=== PATIENT | male | born 1965 | race American Indian/Alaskan Native ===

== ENCOUNTER 2019-12-06 14:13 | Observation (INO) | payer OTHER ==
[2019-12-06 15:53] LABS: Basophils # (Auto) 0.1 K/mm3 (0.0-0.1); Basophils % (Auto) 1.1 % (0.0-1.8); Eosinophils # (Auto) 0.1 K/mm3 (0.0-0.4); Eosinophils % (Auto) 2.1 % (0.0-4.3); Hematocrit 34.8 % (35.5-45.6); Hemoglobin 11.9 gm/dl (11.8-15.2); Lymphocytes # (Auto) 1.6 K/mm3 (1.2-5.4); Lymphocytes % (Auto) 30.3 % (13.4-35.0); Mean Corpuscular HGB Conc 34 % (32-34); Mean Corpuscular Volume 87 fl (84-94); Monocytes # (Auto) 0.3 K/mm3 (0.0-0.8); Monocytes % (Auto) 6.2 % (0.0-7.3); Platelet Count 223 K/mm3 (140-440); Red Blood Count 3.99 M/mm3 (3.65-5.03); Red Cell Distribution Width 16.5 % (13.2-15.2)
[2019-12-06 16:09] LABS: INR 0.78 (0.87-1.13)
[2019-12-06 16:15] LABS: Calcium 9.3 mg/dL (8.4-10.2)
[2019-12-06 16:41] LABS: Partial Thromboplastin Time TNR Sec. (24.2-36.6)
--- NOTE | 2019-12-06 16:49 | Consultation ---
History of Present Illness - Reason for Consult Consult date: 12/06/19 Malfunctioning AV fistula Requesting physician: TOSHA HORN - History of Present Illness HPI: 54-year-old gentleman with end-stage renal disease on hemodialysis via left arm AV fistula M, W, F presents after unable to undergo dialysis on Tuesday due to pulling clots. The patient has a left arm brachiocephalic AV fistula that was created by Dr. miller approximately 3 months ago. The patient recently started cannulation of his access approximately 2-1/2 weeks ago. Per the patient's , no issues with cannulation of the AV fistula initially until this past Tuesday. We have been consulted to evaluate the patient's access for possible intervention. PMH: Hypertension, diabetes mellitus PE: NAD, alert and oriented x3 Regular rate and rhythm Non-labored respirations Left arm AV fistula with palpable thrill Mild left upper arm edema Left hand warm and well-perfused, motor and sensory grossly intact Plan: 54-year-old gentleman with ESRD presents with malfunctioning left arm AV fistula We will plan to take to the [facility] tomorrow for left arm fistulogram with possible intervention N.p.o. after midnight Medications and Allergies Allergies Allergy/AdvReac Type Severity Reaction Status Date / Time No Known Allergies Allergy Unverified 12/06/19 14:14 Exam - Constitutional Vitals: Temp Pulse Resp BP Pulse Ox 98.7 F 97 H 20 150/86 99 12/06/19 14:14 12/06/19 14:14 12/06/19 14:14 12/06/19 14:14 12/06/19 14:14 Results - Labs CBC & Chem 7: 12/06/19 15:27 12/06/19 15:27 Labs: Abnormal lab results 12/06/19 12/06/19 12/06/19 Range/Units 15:27 15:27 15:27 Hct 34.8 L (35.5-45.6) % RDW 16.5 H (13.2-15.2) % PT 10.7 L (12.2-14.9) Sec. INR 0.78 L (0.87-1.13) Chloride 96.3 L (98-107) mmol/L BUN 64 H (9-20) mg/dL Creatinine 12.1 H (0.8-1.5) mg/dL Glucose 111 H (75-100) mg/dL
--- NOTE | 2019-12-06 17:19 | Emergency Department Report ---
ED General Adult HPI - General Chief complaint: Extremity Injury, Upper Stated complaint: FLUSH FISTULA PUI?: No Time Seen by Provider: 12/06/19 14:37 Source: patient, family Mode of arrival: Ambulatory Limitations: Other - History of Present Illness Initial comments: Mr. Urbina is a 54-year-old male with history of end-stage renal disease on hemodialysis Tuesday with left arm AV fistula. He was unable to undergo dialysis on Tuesday. Hemodialysis nurse was unable to obtain vascular access using the AV fistula. Gage Designer referred patient to the emergency department. Vascular surgeon has evaluated patient here in emergency department for declotting procedure. Surgical intervention. Mr. Funes does not have any other physical concerns. Additional history includes hypertension diabetes mellitus. -: days(s) (1) Location: left, upper extremity Associated Symptoms: denies other symptoms Treatments Prior to Arrival: none - Related Data Allergies Allergy/AdvReac Type Severity Reaction Status Date / Time No Known Allergies Allergy Unverified 12/06/19 14:14 ED Review of Systems ROS: Stated complaint: FLUSH FISTULA Other details as noted in HPI Comment: All other systems reviewed and negative Constitutional: denies: fever, malaise Respiratory: denies: cough Cardiovascular: denies: chest pain, palpitations Gastrointestinal: denies: abdominal pain, nausea, vomiting Skin: denies: rash, lesions ED Past Medical Hx - Past Medical History Previous Medical History?: Yes Hx Hypertension: Yes Hx Renal Disease: Yes (dialysis M,W,F) - Surgical History Past Surgical History?: Yes Additional Surgical History: fistula placement - Social History Smoking Status: Never Smoker Substance Use Type: None ED Physical Exam - General Limitations: Other General appearance: alert, in no apparent distress - Head Head exam: Present: atraumatic, normocephalic - Eye Eye exam: Present: normal appearance - ENT ENT exam: Present: mucous membranes moist - Neck Neck exam: Present: normal inspection, full ROM - Respiratory Respiratory exam: Present: normal lung sounds bilaterally. Absent: respiratory distress, wheezes, rales, rhonchi - Cardiovascular Cardiovascular Exam: Present: regular rate, normal rhythm, normal heart sounds. Absent: systolic murmur, diastolic murmur, rubs, gallop - GI/Abdominal GI/Abdominal exam: Present: soft, normal bowel sounds. Absent: distended, tenderness, guarding, rebound - Rectal Rectal exam: Present: deferred - Extremities Exam Extremities exam: Present: other (Left upper extremity: No erythema no drainage no purulence positive thrill) - Back Exam Back exam: Present: normal inspection - Neurological Exam Neurological exam: Present: alert, oriented X3 - Psychiatric Psychiatric exam: Present: normal affect, normal mood - Skin Skin exam: Present: warm, dry, intact, normal color. Absent: rash ED Course Vital Signs 12/06/19 14:14 Temperature 98.7 F Pulse Rate 97 H Respiratory 20 Rate Blood Pressure 150/86 O2 Sat by Pulse 99 Oximetry ED Medical Decision Making - Lab Data Result diagrams: 12/06/19 15:27 12/06/19 15:27 Laboratory Results - last 24 hr 12/06/19 12/06/19 12/06/19 15:27 15:27 15:27 WBC 5.4 RBC 3.99 Hgb 11.9 Hct 34.8 L MCV 87 MCH 30 MCHC 34 RDW 16.5 H Plt Count 223 Lymph % (Auto) 30.3 [place] % (Auto) 6.2 Eos % (Auto) 2.1 Baso % (Auto) 1.1 Lymph # 1.6 [place] # 0.3 Eos # 0.1 Baso # 0.1 Seg Neutrophils % 60.3 Seg Neutrophils # 3.2 PT 10.7 L INR 0.78 L APTT TNR Sodium 141 Potassium 4.3 Chloride 96.3 L Carbon Dioxide 24 Anion Gap 25 BUN 64 H Creatinine 12.1 H Estimated GFR 4 BUN/Creatinine Ratio 5 Glucose 111 H Calcium 9.3 - Medical Decision Making Mr. Funes presents with malfunctioning AV fistula. Vascular surgery team evaluated Mr. Funes in the ED. Plan admit to hospitalist service. Patient will be taken to mill labor supervisor tomorrow for fistulogram and possible surgical intervention. I consulted adjuster and inspector Dr. Aragon. No current need for emergeny hemodiaysis. Potassium within normal limits. No respiratory distress. Critical care attestation.: If time is entered above; I have spent that time in minutes in the direct care of this critically ill patient, excluding procedure time. ED Disposition Clinical Impression: Complication of AV dialysis fistula Disposition: OP ADMIT IP TO THIS HOSP Is pt being admited?: Yes Does the pt Need Aspirin: No Condition: Stable
--- NOTE | 2019-12-06 23:51 | Event Note ---
Date: 12/06/19 See history and physical in the reports Clotted AV fistula on the left arm
[2019-12-07] MEDS ORDERED: DOCUSATE SODIUM 100 MG CAP PO PRN (00:39)
[2019-12-07] MEDS ORDERED: OXYCODONE HCL PO PRN (00:39)
[2019-12-07] MEDS ORDERED: ACETAMINOPHEN PO PRN (00:39)
[2019-12-07] MEDS ORDERED: ONDANSETRON 4 MG/2 ML INJ IV PRN (00:40)
[2019-12-07] MEDS ORDERED: ACETAMINOPHEN 325 MG TAB PO PRN (00:40)
[2019-12-07] MEDS ORDERED: HYDROmorphone 1 MG/1 ML INJ IV PRN (00:40)
[2019-12-07] MEDS ORDERED: oxyCODONE /ACETAMINOPHEN 5-325MG TAB PO PRN (00:40)
--- NOTE | 2019-12-07 00:53 | History and Physical Report ---
CHIEF COMPLAINT: Left upper extremity AV fistula malfunction. HISTORY OF PRESENT ILLNESS: A 54-year-old male with history of end-stage renal disease, hypertension, insulin-dependent diabetes, was unable to undergo hemodialysis on Tuesday because of malfunctioning AV fistula. The patient was referred to the Emergency Department. The patient was evaluated in the ER by the Vascular Surgery for declotting procedure, but could not be done. The patient to be taken for surgical intervention tomorrow morning. The patient has pain in the left upper extremity and swelling of the left upper extremity from below shoulder joint to up to the elbow. No fever or chills. PAST MEDICAL HISTORY: Significant for hypertension, end-stage renal disease and insulin-dependent diabetes. PAST SURGICAL HISTORY: Fistula placement. SOCIAL HISTORY: Does not smoke. No alcohol, no recreational drugs. FAMILY HISTORY: Hypertension. REVIEW OF SYSTEMS: Significant for left upper extremity pain, which is about 6 on a scale of 1-10. No fever or chills. Otherwise, review of systems negative. PHYSICAL EXAMINATION: GENERAL: Middle-aged male, cooperative during examination. VITAL SIGNS: Blood pressure is 150/86, temperature is 98.7, pulse is 97, respirations are 20, sats are 99%. HEENT: Unremarkable. Pupils equal and reactive. NECK: Supple, no lymphadenopathy, no thyromegaly. LUNGS: Clear to auscultation and percussion. Good air entry. CARDIOVASCULAR: S1, S2 heard. No gallop, no murmur, no rub. Apical impulse in left fifth intercostal space and midclavicular line. ABDOMEN: Soft and benign. No hepatosplenomegaly. No guarding, no rigidity. Hernial orifices are normal. EXTREMITIES: Left upper extremity swollen from below shoulder to left elbow. CENTRAL NERVOUS SYSTEM: Alert and oriented x 4, nonfocal exam. LABORATORY DATA: White count is 5400, H and H is 11.9 and 34.8, platelet count is 222,000. Sodium is 141, potassium is 4.3, bicarbonate is 24, chloride is 96.3, BUN and creatinine 64 and 12.1. Glucose is 111. ASSESSMENT AND PLAN: 1. AV fistula malfunction. The patient to be taken for declotting procedure tomorrow by surgical intervention. Vascular Surgery consulted. 2. End-stage renal disease, needing hemodialysis. Nephrology consulted. 3. Insulin-dependent diabetes. Continue Lantus and coverage. Check hemoglobin A1c. 4. Hypertension. Continue antihypertensives and adjust medications as necessary. 5. Gastroesophageal reflux disease. Continue pantoprazole 40 mg once a day. 6. Hyperlipidemia. Continue atorvastatin 40 mg once a day. 7. Benign prostatic hypertrophy. Continue tamsulosin 0.4 mg once a day. 8. Deep venous thrombosis prophylaxis, heparin 5000 q. 12 hours. JOB# [id number] VSM/NTS MTDD
[2019-12-07] MEDS ORDERED: cloNIDine TTS 0.1 MG/24 HR PATCH TD SCH (01:00)
[2019-12-07] MEDS ORDERED: SCOPOLAMINE TRANSDERMAL PATCH 72 HR TD SCH (01:00)
[2019-12-07 01:55] LABS: Basophils % (Auto) 0.4 % (0.0-1.8); Eosinophils # (Auto) 0.1 K/mm3 (0.0-0.4); Eosinophils % (Auto) 3.1 % (0.0-4.3); Hematocrit 34.1 % (35.5-45.6); Hemoglobin 11.3 gm/dl (11.8-15.2); Lymphocytes # (Auto) 1.8 K/mm3 (1.2-5.4); Mean Corpuscular HGB Conc 33 % (32-34); Mean Corpuscular Volume 89 fl (84-94); Monocytes # (Auto) 0.3 K/mm3 (0.0-0.8); Monocytes % (Auto) 7.6 % (0.0-7.3); Platelet Count 208 K/mm3 (140-440); Red Blood Count 3.85 M/mm3 (3.65-5.03); Red Cell Distribution Width 16.5 % (13.2-15.2)
[2019-12-07] MEDS: ONDANSETRON 4 MG ODT TAB PO SCH ×3 (03:09→15:49)
[2019-12-07] MEDS: HEPARIN 5,000 UNIT/1 ML VIAL SUB-Q SCH ×3 (03:11→21:45)
[2019-12-07] MEDS: INSULIN LISPRO 100 UNIT/ML SUB-Q SCH ×4 (07:13→21:47)
[2019-12-07] MEDS ORDERED: HEPARIN/NS 5000 UNIT/500ML 1,000 ML IR ONE (08:00)
[2019-12-07] MEDS ORDERED: SODIUM CHLORIDE 0.9% 500 ML 500 ML ONE (08:01)
[2019-12-07] MEDS: MIDAZOLAM 2 MG/2 ML INJ ONE ×2 (08:27→08:51)
[2019-12-07] MEDS: fentaNYL 100 MCG/2 ML INJ ONE ×2 (08:27→08:51)
[2019-12-07] MEDS ORDERED: SODIUM CHLORIDE 0.9% 100 ML IV PRN ×2 (08:30→08:43)
[2019-12-07] MEDS: LIDOCAINE 1%/EPINEPHRINE 1:100,000 VIAL (20 ML) INFILTRATI ONE ×2 (08:30→08:51)
[2019-12-07] MEDS: HEPARIN 10,000 UNITS/10 ML VIAL ONE ×3 (08:59→09:04)
--- NOTE | 2019-12-07 09:14 | Post Operative Note ---
Date of procedure: 12/07/19 Pre-op diagnosis: ESRD Post-op diagnosis: same Findings: widely patent left brachiocephalic av fistula with multiple branches noted, no central venous stenosis, no stenosis noted at the arterial anastomosis Procedure: 1. Ultrasound access of Left Arm AV Fistula 2. Left Upper Extremity Diagnostic Fistulogram 3. Ultrasound access of Right Internal Jugular Vein 4. Right IJ Permcath Insertion 5. Monitored Conscious Sedation for 30 minutes Anesthesia: MAC, local Estimated blood loss: minimal Pathology: none Condition: stable Disposition: floor
--- NOTE | 2019-12-07 09:38 | Operative Report ---
STAFF SURGEON: Ricardo Morris MD PREOPERATIVE DIAGNOSIS: End-stage renal disease with malfunctioning arteriovenous fistula. POSTOPERATIVE DIAGNOSIS: End-stage renal disease with malfunctioning arteriovenous fistula. PROCEDURE PERFORMED: 1. Ultrasound access of left arm AV fistula. 2. Left upper extremity diagnostic fistulogram. 3. Ultrasound access of right internal jugular vein. 4. Right IJ PermCath insertion. 5. Monitor conscious sedation for 30 minutes. COMPLICATIONS: None. ESTIMATED BLOOD LOSS: Less than 10 mL. ANESTHESIA: Local MAC. ANGIOGRAPHIC FINDINGS: The patient had a widely patent left brachiocephalic AV fistula with multiple branches noted in the body of the fistula. No central venous stenosis and no stenosis noted at the arterial anastomosis. INDICATIONS FOR PROCEDURE: This is a 54-year-old gentleman who recently had a left brachiocephalic AV fistula created that just recently started to be cannulated for dialysis, who on his most recent dialysis attempt was infiltrated and were pulling clots when attempting to be placed on dialysis. Therefore, the patient was sent for vascular consultation and possible evaluation. The patient's family and himself were explained all the risks, benefits and alternatives of procedure, expressed understanding and wished to proceed. DESCRIPTION OF PROCEDURE: After appropriate consent was obtained, the patient was brought back to the builder's labourer, placed on table in supine position with the left arm extended. Appropriate time-out performed indicating correct patient, procedure, and site of procedure. We then began the intervention by obtaining percutaneous access of the left arm AV fistula using micropuncture technique under ultrasound guidance. Once we obtained access, needle was exchanged for a micropuncture sheath using Seldinger technique and a series of diagnostic imaging of the left upper extremity, which demonstrated the findings noted above. Further imaging of the arterial anastomosis was performed with compression of the AV fistula. Once that was complete, we then proceeded to remove the micropuncture sheath and digital compression was held at the access site for hemostasis. The right neck and chest were then prepped and draped in the usual sterile fashion with ChloraPrep. We then proceeded to obtain percutaneous access of the right internal jugular vein using micropuncture technique under ultrasound guidance. We then proceeded to exchange the needle for a micropuncture sheath. A stiff J-wire was then placed into the IVC. The sheath was removed. A stab incision was made on the anterior chest wall just below the clavicle. We then proceeded to create a subcutaneous tunnel bringing through a 23 cm straight PermCath. The access site was then thoroughly dilated appropriately. Then, a sheath and dilator were placed over the wire into the SVC. Dilator and wire were removed. The catheter was then placed through the peel-away sheath with the tip of the catheter at the SVC right atrial junction. The peel-away sheath was removed. Both lumens celeste blood appropriately, were flushed with heparinized saline. Appropriate amount of heparin was placed in each port. We then proceeded to close the access site with a deep subcutaneous layer with a 3-0 Vicryl and the skin was approximated with 3-0 nylon and the catheter exit site was sutured in place with 3-0 nylon. Appropriate dressing was placed. The patient tolerated the procedure well, emerged from the conscious sedation and was sent to recovery in stable condition. JOB# [id number] CRYSTAL/HAO
[2019-12-07] MEDS ORDERED: FAMOTIDINE 10 MG TAB PO SCH (10:00)
--- NOTE | 2019-12-07 10:13 | Progress Note ---
Assessment and Plan Assessment and plan: --AV fistula malfunction; Vascular evaluated the patient Vascular procedure/permacath placement --End-stage renal disease on hemodialysis; Nephrology following, HD per schedule --Type 2 diabetes mellitus; Accu-Chek sliding scale coverage ADA diet and insulin --Hypertension; moderate control Continue current antihypertensives and PRN medications --BPH; stable on tamsulosin --DVT prophylaxis; Heparin renal dose Closely monitor the patient and adjust management as needed Hospitalist Physical - Constitutional Vitals: Temp Pulse Resp BP Pulse Ox 98.0 F 76 18 144/83 100 12/06/19 23:50 12/06/19 23:50 12/06/19 23:50 12/06/19 23:50 12/06/19 23:50 Results - Labs CBC & Chem 7: 12/07/19 01:15 12/07/19 01:15 Labs: Laboratory Last Values WBC 4.3 K/mm3 (4.5-11.0) L 12/07/19 01:15 RBC 3.85 M/mm3 (3.65-5.03) 12/07/19 01:15 Hgb 11.3 gm/dl (11.8-15.2) L 12/07/19 01:15 Hct 34.1 % (35.5-45.6) L 12/07/19 01:15 MCV 89 fl (84-94) 12/07/19 01:15 MCH 29 pg (28-32) 12/07/19 01:15 MCHC 33 % (32-34) 12/07/19 01:15 RDW 16.5 % (13.2-15.2) H 12/07/19 01:15 Plt Count 208 K/mm3 (140-440) 12/07/19 01:15 Lymph % (Auto) 42.0 % (13.4-35.0) H 12/07/19 01:15 [place] % (Auto) 7.6 % (0.0-7.3) H 12/07/19 01:15 Eos % (Auto) 3.1 % (0.0-4.3) 12/07/19 01:15 Baso % (Auto) 0.4 % (0.0-1.8) 12/07/19 01:15 Lymph # 1.8 K/mm3 (1.2-5.4) 12/07/19 01:15 [place] # 0.3 K/mm3 (0.0-0.8) 12/07/19 01:15 Eos # 0.1 K/mm3 (0.0-0.4) 12/07/19 01:15 Baso # 0.0 K/mm3 (0.0-0.1) 12/07/19 01:15 Seg Neutrophils % 46.9 % (40.0-70.0) 12/07/19 01:15 Seg Neutrophils # 2.0 K/mm3 (1.8-7.7) 12/07/19 01:15 PT 10.7 Sec. (12.2-14.9) L 12/06/19 15:27 INR 0.78 (0.87-1.13) L 12/06/19 15:27 APTT TNR 12/06/19 16:50 Sodium 139 mmol/L (137-145) 12/07/19 01:15 Potassium 4.2 mmol/L (3.6-5.0) 12/07/19 01:15 Chloride 93.6 mmol/L (98-107) L 12/07/19 01:15 Carbon Dioxide 29 mmol/L (22-30) 12/07/19 01:15 Anion Gap 21 mmol/L 12/07/19 01:15 BUN 68 mg/dL (9-20) H 12/07/19 01:15 Creatinine 12.4 mg/dL (0.8-1.5) H 12/07/19 01:15 Estimated GFR 5 ml/min 12/07/19 01:15 BUN/Creatinine Ratio 5 % 12/07/19 01:15 Glucose 128 mg/dL (75-100) H 12/07/19 01:15 Hemoglobin A1c 5.4 % (4-6) 12/07/19 01:15 Calcium 9.0 mg/dL (8.4-10.2) 12/07/19 01:15 [place]/IV: Voiding Method Toilet IV Catheter Type [Right INT / Saline Lock Antecubital] Active Medications - Current Medications Current Medications: Generic Name Dose Route Start Last Admin Trade Name Freq PRN Reason Stop Dose Admin Acetaminophen 650 mg 12/07/19 00:40 Tylenol PO Q4H PRN Pain MILD(1-3)/Fever >100.5/PRUITT Amlodipine Besylate 5 mg 12/07/19 10:00 Amlodipine PO DAILY [facility] Atorvastatin Calcium 40 mg 12/07/19 22:00 Lipitor PO QHS [facility] Clonidine HCl 0.1 mg 12/07/19 01:00 12/07/19 03:10 Catapres-Tts Patch TD 0.1 mg Fr ERROL Administration Docusate Sodium 100 mg 12/07/19 00:39 Colace PO BID PRN Constipation Heparin Sodium (Porcine) 5,000 unit 12/07/19 01:00 12/07/19 03:11 Heparin SUB-Q 5,000 unit Q12HR [facility] Administration Hydromorphone HCl 0.5 mg 12/07/19 00:40 Dilaudid IV Q3H PRN Pain , Severe (7-10) Sodium Chloride 100 mls @ 999 mls/hr 12/07/19 08:43 Nacl 0.9% IV EVELYN PRN Hypotension Insulin Glargine 10 units 12/07/19 22:00 Lantus SUB-Q QHS [facility] Insulin Human Lispro 0 unit 12/07/19 07:30 12/07/19 07:13 Humalog SUB-Q Not Given ACHS [facility] Protocol Ondansetron HCl 4 mg 12/07/19 01:00 12/07/19 05:15 Zofran Odt PO 4 mg Q8HR ERROL Administration Ondansetron HCl 4 mg 12/07/19 00:40 Zofran IV Q8H PRN Nausea And Vomiting Oxycodone/Acetaminophen 1 tab 12/07/19 00:40 Percocet 5/325 PO Q6H PRN Pain, Moderate (4-6) Pantoprazole Sodium 40 mg 12/07/19 10:00 Protonix PO QDAY [facility] Scopolamine 1 each 12/07/19 01:00 12/07/19 03:10 Transderm-Scop TD 1 each Q3D ERROL Administration Sodium Chloride 10 ml 12/07/19 10:00 Sodium Chloride Flush Syringe 10 Ml IV BID ERROL Sodium Chloride 10 ml 12/07/19 00:40 Sodium Chloride Flush Syringe 10 Ml IV PRN PRN LINE FLUSH Sorbitol 30 ml 12/07/19 10:00 Sorbitol 70% PO QDAY [facility] Tamsulosin HCl 0.4 mg 12/07/19 10:00 Flomax PO QDAY [facility]
[2019-12-07 11:37] LABS: Hepatitis B Surface Antigen Non-Reactive (Negative); Hepatitis C Virus Antibody Non-Reactive (NonReactive)
--- NOTE | 2019-12-07 11:46 | Consultation ---
History of Present Illness - Reason for Consult Consult date: 12/07/19 end stage renal disease Requesting physician: CHENG TAN - History of Present Illness This is a 54 yo M with past medical history of hypertension, T2 DM, ESRD on HD on MWF schedule at [facility] [place] Maria Isabel Flores, who presents to [facility] ER from HD clinic after patient was not able to undergo HD on Tue due to pulling clots. The patient has a left arm brachiocephalic AV fistula that was created by Dr. miller about 3 months ago. The patient recently started cannulation of his access approximately 3 weeks ago. Per the patient's , no issues with cannulation of the AV fistula initially until this past Tuesday. patient was admitted for vascular surgery evaluation, and renal consult requested for management of ESRD/HD. Past History Past Medical History: diabetes, hypertension, renal failure Past Surgical History: Other (AVF placement, permcath placement ) Social history: denies: smoking, alcohol abuse, prescription drug abuse, IV drug use Family history: hypertension Medications and Allergies Allergies Allergy/AdvReac Type Severity Reaction Status Date / Time No Known Allergies Allergy Verified 12/07/19 00:46 Home Medications Medication Instructions Recorded Confirmed Last Taken Type AtorvaSTATin [Lipitor] 40 mg PO QHS 12/06/19 12/06/19 Unknown History Docusate Sodium [Colace] 100 mg PO BID PRN 12/06/19 12/06/19 Unknown History Insulin Glargine [Lantus VIAL] 0 units SUB-Q QHS 12/06/19 12/06/19 Unknown History Ondansetron [Zofran Odt] 4 mg PO Q8HR 12/06/19 12/06/19 Unknown History Oxycodone HCl/Acetaminophen 1 tab PO Q6HR PRN 12/06/19 12/06/19 Unknown History [Oxycodon-Acetaminophen 2.5-325] Pantoprazole [Protonix] 40 mg PO QDAY 12/06/19 12/06/19 Unknown History Scopolamine [Transderm-Scop] 1 each TD Q3D 12/06/19 12/06/19 Unknown History Sorbitol 70% 30 ml PO QDAY 12/06/19 12/06/19 Unknown History Tamsulosin [Flomax] 0.4 mg PO QDAY 12/06/19 12/06/19 Unknown History amLODIPine [Norvasc] 5 mg PO DAILY 12/06/19 12/06/19 Unknown History cloNIDine-TTS PATCH [Catapres-Tts 1 patch TD Q7D 12/06/19 12/06/19 Unknown History 0.1MG Patch] Active Meds: Active Medications Acetaminophen (Tylenol) 650 mg PO Q4H PRN PRN Reason: Pain MILD(1-3)/Fever >100.5/PRUITT Amlodipine Besylate (Amlodipine) 5 mg PO DAILY [facility] Atorvastatin Calcium (Lipitor) 40 mg PO QHS [facility] Clonidine HCl (Catapres-Tts Patch) 0.1 mg TD Fr [facility] Last Admin: 12/07/19 03:10 Dose: 0.1 mg Documented by: Docusate Sodium (Colace) 100 mg PO BID PRN PRN Reason: Constipation Heparin Sodium (Porcine) (Heparin) 5,000 unit SUB-Q Q12HR [facility] Last Admin: 12/07/19 03:11 Dose: 5,000 unit Documented by: Hydromorphone HCl (Dilaudid) 0.5 mg IV Q3H PRN PRN Reason: Pain , Severe (7-10) Sodium Chloride (Nacl 0.9%) 100 mls @ 999 mls/hr IV EVELYN PRN PRN Reason: Hypotension Insulin Glargine (Lantus) 10 units SUB-Q QHS [facility] Insulin Human Lispro (Humalog) 0 unit SUB-Q [facility]; Protocol Last Admin: 12/07/19 07:13 Dose: Not Given Documented by: Ondansetron HCl (Zofran Odt) 4 mg PO Q8HR [facility] Last Admin: 12/07/19 05:15 Dose: 4 mg Documented by: Ondansetron HCl (Zofran) 4 mg IV Q8H PRN PRN Reason: Nausea And Vomiting Oxycodone/Acetaminophen (Percocet 5/325) 1 tab PO Q6H PRN PRN Reason: Pain, Moderate (4-6) Pantoprazole Sodium (Protonix) 40 mg PO QDAY [facility] Scopolamine (Transderm-Scop) 1 each TD Q3D [facility] Last Admin: 12/07/19 03:10 Dose: 1 each Documented by: Sodium Chloride (Sodium Chloride Flush Syringe 10 Ml) 10 ml IV BID [facility] Sodium Chloride (Sodium Chloride Flush Syringe 10 Ml) 10 ml IV PRN PRN PRN Reason: LINE FLUSH Sorbitol (Sorbitol 70%) 30 ml PO QDAY ERROL Tamsulosin HCl (Flomax) 0.4 mg PO QDAY ERROL Review of Systems All systems: negative Constitutional: weakness Exam - Vital Signs Vital signs: Vital Signs Temp Pulse Resp BP Pulse Ox 98.7 F 97 H 20 150/86 99 12/06/19 14:14 12/06/19 14:14 12/06/19 14:14 12/06/19 14:14 12/06/19 14:14 - General Appearance General appearance: well-developed, well-nourished, appears stated age EENT: ATNC, PERRL, mucous membranes moist Neck: Present: neck supple Respiratory: Clear to Ascultation Heart: regular, S1S2 Gastrointestinal: Present: normoactive bowel sounds Integumentary: no rash, other (no edema, LUE AVF with + thrill/bruit, Rt permcath ) Neurologic: no focal deficit, alert and oriented x3, strength 5/5, CN 3-12 intact Psychiatric: mood/affect appropriate, cooperative Results - Lab Results 12/07/19 01:15 12/07/19 01:15 Most recent lab results Calcium 9.0 mg/dL (8.4-10.2) 12/07/19 01:15 Assessment and Plan - Patient Problems (1) Complication of AV dialysis fistula Current Visit: Yes Status: Acute Plan to address problem: vascular surgery consult appreciated, s/p fistulogram this AM. Cont HD via permcath for now until AVF use is cleared by vascular surgery (2) Type 2 diabetes mellitus with diabetic chronic kidney disease Current Visit: Yes Status: Acute Plan to address problem: diabetes management as per primary attending (3) Hypertensive chronic kidney disease with stage 1 through stage 4 chronic kidney disease, or unspecified chronic kidney disease Current Visit: Yes Status: Acute Plan to address problem: resume home BP meds (4) End stage renal disease Current Visit: Yes Status: Acute Plan to address problem: arranged maintenance HD on MWF schedule. use permcath for now, until AVF use is cleared by vascular surgery
[2019-12-07] MEDS ORDERED: ONDANSETRON 4 MG/2 ML INJ ONE (11:58)
[2019-12-07] MEDS: PANTOPRAZOLE 40 MG TAB PO SCH (14:14)
[2019-12-07] MEDS: SORBITOL 70% ORAL SOLN 30 ML PO SCH (14:15)
[2019-12-07] MEDS: TAMSULOSIN 0.4 MG CAP PO SCH (14:15)
[2019-12-07] MEDS: amLODIPine 5 MG TAB PO SCH (14:15)
[2019-12-07] MEDS ORDERED: INSULIN GLARGINE 100 UNITS/ML SUB-Q SCH (22:00)
[2019-12-08] MEDS: ONDANSETRON 4 MG ODT TAB PO SCH ×2 (03:34→06:08)
[2019-12-08] MEDS: INSULIN LISPRO 100 UNIT/ML SUB-Q SCH ×2 (08:24→12:57)
[2019-12-08] MEDS: PANTOPRAZOLE 40 MG TAB PO SCH (09:26)
[2019-12-08] MEDS: amLODIPine 5 MG TAB PO SCH (09:26)
[2019-12-08] MEDS: TAMSULOSIN 0.4 MG CAP PO SCH (09:26)
[2019-12-08] MEDS: HEPARIN 5,000 UNIT/1 ML VIAL SUB-Q SCH (09:26)
[2019-12-08] MEDS: SORBITOL 70% ORAL SOLN 30 ML PO SCH (09:27)
--- NOTE | 2019-12-08 10:21 | Progress Note ---
Assessment and Plan Patient can be discharged home from a vascular standpoint. He will need to follow-up in our office for cephalic vein elevation. Subjective Date of service: 12/08/19 Principal diagnosis: End-stage renal disease on hemodialysis with malfunctioning access Interval history: Patient is status post placement of a right IJ tunneled hemodialysis catheter. His left arm fistula has a palpable thrill although is infiltrated significantly. Patient complains of minimal left hand numbness without loss of motor. Objective - Constitutional Vitals: Vital Signs - 12hr 12/08/19 12/08/19 12/08/19 00:50 02:00 03:59 Temperature 98.9 F 98.0 F Pulse Rate 73 85 Respiratory 18 16 18 Rate Blood Pressure 137/83 135/84 O2 Sat by Pulse 96 98 Oximetry 12/08/19 12/08/19 06:59 08:54 Temperature 98.1 F Pulse Rate 89 79 Respiratory 20 Rate Blood Pressure 122/90 O2 Sat by Pulse 99 Oximetry General appearance: Present: no acute distress - EENT Eyes: EOM intact ENT: hearing intact - Neck Neck: supple, normal ROM - Respiratory Respiratory effort: normal Extremities: abnormal - Gastrointestinal General gastrointestinal: Present: deferred Rectal Exam: deferred - Genitourinary Male genitourinary: deferred - Psychiatric Psychiatric: appropriate mood/affect, cooperative - Labs CBC & Chem 7: 12/07/19 01:15 12/07/19 01:15 Labs: Abnormal lab results 12/07/19 Range/Units 21:27 POC Glucose 115 H (70-105) Medications & Allergies - Medications Allergies/Adverse Reactions: Allergies No Known Allergies Allergy (Verified 12/07/19 00:46) Home Medications: Home Medications Medication Instructions Recorded Confirmed Last Taken Type AtorvaSTATin [Lipitor] 40 mg PO QHS 12/06/19 12/06/19 Unknown History Docusate Sodium [Colace] 100 mg PO BID PRN 12/06/19 12/06/19 Unknown History Insulin Glargine [Lantus VIAL] 0 units SUB-Q QHS 12/06/19 12/06/19 Unknown History Ondansetron [Zofran Odt] 4 mg PO Q8HR 12/06/19 12/06/19 Unknown History Oxycodone HCl/Acetaminophen 1 tab PO Q6HR PRN 12/06/19 12/06/19 Unknown History [Oxycodon-Acetaminophen 2.5-325] Pantoprazole [Protonix] 40 mg PO QDAY 12/06/19 12/06/19 Unknown History Scopolamine [Transderm-Scop] 1 each TD Q3D 12/06/19 12/06/19 Unknown History Sorbitol 70% 30 ml PO QDAY 12/06/19 12/06/19 Unknown History Tamsulosin [Flomax] 0.4 mg PO QDAY 12/06/19 12/06/19 Unknown History amLODIPine [Norvasc] 5 mg PO DAILY 12/06/19 12/06/19 Unknown History cloNIDine-TTS PATCH [Catapres-Tts 1 patch TD Q7D 12/06/19 12/06/19 Unknown History 0.1MG Patch] Active Medications: Generic Name Dose Route Start Last Admin Trade Name Freq PRN Reason Stop Dose Admin Acetaminophen 650 mg 12/07/19 00:40 Tylenol PO Q4H PRN Pain MILD(1-3)/Fever >100.5/PRUITT Amlodipine Besylate 5 mg 12/07/19 10:00 12/08/19 09:26 Amlodipine PO 5 mg DAILY ERROL Administration Atorvastatin Calcium 40 mg 12/07/19 22:00 12/07/19 21:45 Lipitor PO 40 mg QHS ERROL Administration Clonidine HCl 0.1 mg 12/07/19 01:00 12/07/19 03:10 Catapres-Tts Patch TD 0.1 mg Fr ERROL Administration Docusate Sodium 100 mg 12/07/19 00:39 Colace PO BID PRN Constipation Heparin Sodium (Porcine) 5,000 unit 12/07/19 01:00 12/08/19 09:26 Heparin SUB-Q Not Given Q12HR ERROL Hydromorphone HCl 0.5 mg 12/07/19 00:40 Dilaudid IV Q3H PRN Pain , Severe (7-10) Sodium Chloride 100 mls @ 999 mls/hr 12/07/19 08:43 Nacl 0.9% IV EVELYN PRN Hypotension Insulin Glargine 10 units 12/07/19 22:00 12/07/19 21:46 Lantus SUB-Q Not Given QHS [facility] Insulin Human Lispro 0 unit 12/07/19 07:30 12/08/19 08:24 Humalog SUB-Q Not Given ACHS ERROL Protocol Ondansetron HCl 4 mg 12/07/19 01:00 12/08/19 06:08 Zofran Odt PO 4 mg Q8HR ERROL Administration Ondansetron HCl 4 mg 12/07/19 00:40 Zofran IV Q8H PRN Nausea And Vomiting Oxycodone/Acetaminophen 1 tab 12/07/19 00:40 Percocet 5/325 PO Q6H PRN Pain, Moderate (4-6) Pantoprazole Sodium 40 mg 12/07/19 10:00 12/08/19 09:26 Protonix PO 40 mg QDAY ERROL Administration Scopolamine 1 each 12/07/19 01:00 12/07/19 03:10 Transderm-Scop TD 1 each Q3D ERROL Administration Sodium Chloride 10 ml 12/07/19 10:00 12/07/19 21:45 Sodium Chloride Flush Syringe 10 Ml IV 10 ml BID ERROL Administration Sodium Chloride 10 ml 12/07/19 00:40 Sodium Chloride Flush Syringe 10 Ml IV PRN PRN LINE FLUSH Sorbitol 30 ml 12/07/19 10:00 12/08/19 09:27 Sorbitol 70% PO 30 ml QDAY ERROL Administration Tamsulosin HCl 0.4 mg 12/07/19 10:00 12/08/19 09:26 Flomax PO 0.4 mg QDAY ERROL Administration
--- NOTE | 2019-12-08 14:03 | Discharge Summary ---
Providers - Providers Date of Admission: 12/06/19 17:20 Date of discharge: 12/08/19 Attending physician: RAVEN OCONNOR 12/06/19 17:19 Consult to Physician [CONS] Stat Comment: SHE BENJI Muñoz/ DR LINN @1553 Consulting Provider: JOSE LINN Physician Instructions: Reason For Exam: malfunctioning AV fistula Consult to Physician [CONS] Stat Comment: BRISA BENJI Muñoz/DR MORALES @1519 Consulting Provider: KAROL MORALES Physician Instructions: Reason For Exam: ESRD on HD [facility] Condition: Stable Disposition: DC-01 TO HOME OR SELFCARE Time spent for discharge: 32 min Core Measure Documentation - Palliative Care Palliative Care/ Comfort Measures: Not Applicable - Core Measures Any of the following diagnoses?: none Exam - Constitutional Vitals: Temp Pulse Resp BP Pulse Ox 98 F 78 18 142/79 98 12/08/19 11:49 12/08/19 11:49 12/08/19 11:49 12/08/19 11:49 12/08/19 12:02 General appearance: Present: no acute distress, well-nourished - EENT Eyes: Present: PERRL, EOM intact - Neck Neck: Present: supple, normal ROM - Respiratory Respiratory effort: normal Respiratory: bilateral: diminished, negative: rales, rhonchi, wheezing - Cardiovascular Rhythm: regular Heart Sounds: Present: S1 & S2 - Extremities Extremities: no ischemia, No edema - Abdominal General gastrointestinal: Present: soft, non-tender, non-distended, normal bowel sounds - Integumentary Integumentary: Present: clear, warm - Musculoskeletal Musculoskeletal: strength equal bilaterally - Psychiatric Psychiatric: appropriate mood/affect, cooperative - Neurologic Neurologic: CNII-XII intact, moves all extremities Plan Activity: advance as tolerated Diet: renal Additional Instructions: F/u renal, hemodialysis per schedule MWF. Strongly advised to comply with medications diet dialysis and follow-up with Doctors visits. Follow up with: [facility] [facility] BILLIE [Primary Care Provider] - 7 Days KAROL MORALES MD [Staff Physician] - 7 Days
--- NOTE | 2019-12-08 16:29 | Progress Note ---
Assessment and Plan - Patient Problems (1) End stage renal disease Current Visit: Yes Status: Chronic Plan to address problem: To follow up at the outpatient dialysis unit at [facility]. From nephrology standpoint patient is stable for DC at this time. (2) Complication of AV dialysis fistula Current Visit: Yes Status: Acute Plan to address problem: Plan to follow up with Dr Chapa as an outpatient. Will be using RIJ permcath in the interim. (3) Hypertensive chronic kidney disease with stage 1 through stage 4 chronic kidney disease, or unspecified chronic kidney disease Current Visit: Yes Status: Chronic Plan to address problem: Blood pressures stable on current regimen. (4) Type 2 diabetes mellitus with diabetic chronic kidney disease Current Visit: Yes Status: Chronic Plan to address problem: Management per primary attending. Subjective Date of service: 12/08/19 Principal diagnosis: End-stage renal disease on hemodialysis with malfunctioning access Interval history: No acute issues at this time. He will be using the RIJ permcath at this time until further notice/recommendations from vascular surgery. Plan for DC today. Objective - Vital Signs Vital signs: Vital Signs - 12hr 12/08/19 12/08/19 12/08/19 06:59 08:54 11:49 Temperature 98.1 F 98 F Pulse Rate 89 79 78 Respiratory 20 18 Rate Blood Pressure 122/90 Blood Pressure 142/79 [Left] O2 Sat by Pulse 99 99 Oximetry 12/08/19 12:02 Temperature Pulse Rate Respiratory Rate Blood Pressure Blood Pressure [Left] O2 Sat by Pulse 98 Oximetry - General Appearance General appearance: well-developed, well-nourished, appears stated age EENT: ATNC, PERRL Neck: no JVD, no thyromegaly Respiratory: Present: Clear to Ascultation Cardiology: regular, S1S2 Gastrointestinal: normal, normoactive bowel sounds Integumentary: no rash Neurologic: no focal deficit, alert and oriented x3 Musculoskeletal: deferred Psychiatric: cooperative - Lab 12/07/19 01:15 12/07/19 01:15 Most recent lab results Calcium 9.0 mg/dL (8.4-10.2) 12/07/19 01:15 - Allied health notes Allied health notes reviewed: nursing Medications & Allergies - Medications Allergies/Adverse Reactions: Allergies No Known Allergies Allergy (Verified 12/07/19 00:46) Home Medications: Home Medications Medication Instructions Recorded Confirmed Last Taken Type AtorvaSTATin [Lipitor] 40 mg PO QHS 12/06/19 12/06/19 Unknown History Docusate Sodium [Colace CAP] 100 mg PO BID PRN 12/06/19 12/06/19 Unknown History Ondansetron [Zofran ODT TAB] 4 mg PO Q8HR 12/06/19 12/06/19 Unknown History Oxycodone HCl/Acetaminophen 1 tab PO Q6HR PRN 12/06/19 12/06/19 Unknown History [Oxycodon-Acetaminophen 2.5-325] Pantoprazole [Protonix TAB] 40 mg PO QDAY 12/06/19 12/06/19 Unknown History Scopolamine [Transderm-Scop] 1 each TD Q3D 12/06/19 12/06/19 Unknown History Sorbitol 70% 30 ml PO QDAY 12/06/19 12/06/19 Unknown History Tamsulosin [Flomax] 0.4 mg PO QDAY 12/06/19 12/06/19 Unknown History amLODIPine 5 mg PO DAILY 12/06/19 12/06/19 Unknown History cloNIDine-TTS PATCH [Catapres-Tts 1 patch TD Q7D 12/06/19 12/06/19 Unknown History 0.1MG Patch] Active Medications: Generic Name Dose Route Start Last Admin Trade Name Freq PRN Reason Stop Dose Admin Acetaminophen 650 mg 12/07/19 00:40 Tylenol PO Q4H PRN Pain MILD(1-3)/Fever >100.5/PRUITT Amlodipine Besylate 5 mg 12/07/19 10:00 12/08/19 09:26 Amlodipine PO 5 mg DAILY ERROL Administration Atorvastatin Calcium 40 mg 12/07/19 22:00 12/07/19 21:45 Lipitor PO 40 mg QHS ERROL Administration Clonidine HCl 0.1 mg 12/07/19 01:00 12/07/19 03:10 Catapres-Tts Patch TD 0.1 mg Fr ERROL Administration Docusate Sodium 100 mg 12/07/19 00:39 Colace PO BID PRN Constipation Heparin Sodium (Porcine) 5,000 unit 12/07/19 01:00 12/08/19 09:26 Heparin SUB-Q Not Given Q12HR ERROL Hydromorphone HCl 0.5 mg 12/07/19 00:40 Dilaudid IV Q3H PRN Pain , Severe (7-10) Sodium Chloride 100 mls @ 999 mls/hr 12/07/19 08:43 Nacl 0.9% IV EVELYN PRN Hypotension Insulin Glargine 10 units 12/07/19 22:00 12/07/19 21:46 Lantus SUB-Q Not Given QHS ERROL Insulin Human Lispro 0 unit 12/07/19 07:30 12/08/19 12:57 Humalog SUB-Q Not Given ACHS [facility] Protocol Ondansetron HCl 4 mg 12/07/19 01:00 12/08/19 06:08 Zofran Odt PO 4 mg Q8HR ERROL Administration Ondansetron HCl 4 mg 12/07/19 00:40 Zofran IV Q8H PRN Nausea And Vomiting Oxycodone/Acetaminophen 1 tab 12/07/19 00:40 Percocet 5/325 PO Q6H PRN Pain, Moderate (4-6) Pantoprazole Sodium 40 mg 12/07/19 10:00 12/08/19 09:26 Protonix PO 40 mg QDAY ERROL Administration Scopolamine 1 each 12/07/19 01:00 12/07/19 03:10 Transderm-Scop TD 1 each Q3D ERROL Administration Sodium Chloride 10 ml 12/07/19 10:00 12/07/19 21:45 Sodium Chloride Flush Syringe 10 Ml IV 10 ml BID ERROL Administration Sodium Chloride 10 ml 12/07/19 00:40 Sodium Chloride Flush Syringe 10 Ml IV PRN PRN LINE FLUSH Sorbitol 30 ml 12/07/19 10:00 12/08/19 09:27 Sorbitol 70% PO 30 ml QDAY ERROL Administration Tamsulosin HCl 0.4 mg 12/07/19 10:00 12/08/19 09:26 Flomax PO 0.4 mg QDAY ERROL Administration
[2019-12-11 11:33] VITALS: BP 142/79
== END 2019-12-08 18:23 | disposition home or self-care (01) ==
LOC: ED 14:13 → 4A 17:20 → UNDODISOB 12-07 14:30
PROVIDERS: ADMIT Internal Medicine; ATTEND Internal Medicine
DX: T82.590A Other mechanical complication of surgically created arteriovenous fistula, initial encounter (principal); I12.0 Hypertensive chronic kidney disease with stage 5 chronic kidney disease or end stage renal disease; E11.22 Type 2 diabetes mellitus with diabetic chronic kidney disease; N18.6 End stage renal disease; K21.9 Gastro-esophageal reflux disease without esophagitis; E78.5 Hyperlipidemia, unspecified; N40.0 Benign prostatic hyperplasia without lower urinary tract symptoms; Z99.2 Dependence on renal dialysis; Z79.4 Long term (current) use of insulin; Z79.899 Other long term (current) drug therapy; Y83.8 Other surgical procedures as the cause of abnormal reaction of the patient, or of later complication, without mention of misadventure at the time of the procedure; Y92.89 Other specified places as the place of occurrence of the external cause
CPT/HCPCS: 36415; 36558; 36901; 77001; 80048; 80074; 82962; 83036; 85025; 85610; 87641; 96372; 99284; A9270; C1750; C1769; G0257; G0378; J1644; J2250; J2405; J3010; J7040; J1815; Q0162; Q9967

== ENCOUNTER 2020-01-03 10:34 | Day surgery (SDC) | payer OTHER ==
[~2020-01-03 10:34] MED LIST: MIDAZOLAM 2 MG/2 ML INJ IV NR; SODIUM CHLORIDE 0.9% 1000 ML 1,000 ML IV SCH; ceFAZolin/Water 2 GM/20 ML 2 GM/20 ML SYRINGE IV NR; fentaNYL 100 MCG/2 ML INJ IV PRN
[2020-01-03] MEDS ORDERED: fentaNYL 100 MCG/2 ML INJ IV PRN (12:18)
--- NOTE | 2020-01-03 12:18 | Anesthesia Day of Surgery ---
Anesthesia Day of Surgery - Day of Surgery Patient Examined: Yes Patient H&P Reviewed: Yes Patient is NPO: Yes
--- NOTE | 2020-01-03 12:18 | Anesthesia Consultation ---
Anesthesia Consult and Med Hx Date of service: 01/03/20 - Airway Anesthetic Teeth Evaluation: Poor ROM Head & Neck: Adequate Mental/Hyoid Distance: Adequate Mallampati Class: Class III Intubation Access Assessment: Possibly Difficult - Pulmonary Exam CTA: Yes - Cardiac Exam Cardiac Exam: RRR - Pre-Operative Health Status ASA Pre-Surgery Classification: ASA3 Proposed Anesthetic Plan: General - Pulmonary Hx Smoking: Yes (quit 10yrs ago) Hx Respiratory Symptoms: No Hx Sleep Apnea: Yes (no longer uses CPAP since losing weight several months ago) - Cardiovascular System Hx Hypertension: Yes (resolved since starting HD [id number]) Hx Heart Attack/AMI: No Hx Percutaneous Transluminal Coronary Angioplasty (PTCA): No Hx Cardia Arrhythmia: No - Central Nervous System CVA: Yes (TIA 2016) Hx Psychiatric Problems: Yes (PTSD) - Gastrointestinal Hx Gastroesophageal Reflux Disease: Yes (gastroparesis on reglan) - Endocrine Hx End Stage Renal Disease: Yes (last HD 01/02/2020) Hx Liver Disease: No Hx Non-Insulin Dependent Diabetes: Yes Hx Thyroid Disease: No - Hematic Hx Anemia: Yes - Other Systems Hx Obesity: No - Additional Comments Anesthesia Medical History Comments: No hx anesthetic complications. Consent signed by per patient request as patient is legally blind.
[2020-01-03 12:57] LABS: Calcium 9.1 mg/dL (8.4-10.2)
[2020-01-03 13:36] LABS: Hematocrit 33.5 % (35.5-45.6); Hemoglobin 11.2 gm/dl (11.8-15.2); Mean Corpuscular HGB Conc 34 % (32-34); Mean Corpuscular Volume 90 fl (84-94); Platelet Count 224 K/mm3 (140-440); Red Blood Count 3.74 M/mm3 (3.65-5.03); Red Cell Distribution Width 16.3 % (13.2-15.2)
[2020-01-03] MEDS ORDERED: THROMBIN (RECOMBINANT) 5,000 UNIT VIAL TP ONE ×2 (15:26→16:26)
[2020-01-03] MEDS ORDERED: SODIUM CHLORIDE 0.9% 250ML 250 ML ONE (15:26)
[2020-01-03] MEDS ORDERED: HEPARIN 10,000 UNITS/10 ML VIAL ONE (15:26)
[2020-01-03] MEDS ORDERED: GELATIN SPONGE SIZE 100 TP ONE ×2 (15:28→16:26)
[2020-01-03] MEDS ORDERED: dexAMETHasone 20 MG/5 ML VIAL ONE (15:33)
[2020-01-03] MEDS ORDERED: ONDANSETRON 4 MG/2 ML INJ ONE (15:33)
[2020-01-03] MEDS ORDERED: propofoL 200 MG/20 ML VIAL IV ONE (15:33)
[2020-01-03] MEDS ORDERED: LIDOCAINE MPF (2%) 20 MG/1 ML VIAL 5 ML ONE (15:33)
[2020-01-03] MEDS ORDERED: HYDROmorphone 1 MG/1 ML INJ ONE (15:33)
[2020-01-03] MEDS ORDERED: HEPARIN 10,000 UNITS/10 ML VIAL IR ONE (16:25)
[2020-01-03] MEDS ORDERED: SODIUM CHLORIDE 0.9% 250 ML IVPB IR ONE (16:26)
[2020-01-03] MEDS ORDERED: SODIUM CHLORIDE 0.9% IRR 1,500 ML BOTTLE IR ONE (16:27)
[2020-01-03] MEDS ORDERED: fentaNYL 100 MCG/2 ML INJ ONE (17:56)
[2020-01-03] MEDS ORDERED: SODIUM CHLORIDE 0.9% 1000 ML 1,000 ML ONE (18:14)
--- NOTE | 2020-01-03 18:25 | Post Operative Note ---
Date of procedure: 01/03/20 Pre-op diagnosis: ESRD Post-op diagnosis: same Procedure: Left Arm Cephalic Vein Transposition Anesthesia: GETA Surgeon: ERNST AGUAYO Estimated blood loss: other (25ml) Pathology: none Condition: stable Disposition: PACU
[2020-01-03] MEDS ORDERED: oxyCODONE /ACETAMINOPHEN 5-325MG TAB PO PRN (18:27)
--- NOTE | 2020-01-03 18:32 | Short Stay Summary ---
Short Stay Documentation Date of service: 01/03/20 - History H&P: obtained from office Past Medical History: diabetes, ESRD, stroke - Allergies and Medications Current Medications: Allergies No Known Allergies Allergy (Verified 12/27/19 16:15) Home Medications Medication Instructions Recorded Confirmed Last Taken Type No Known Home Medications [No 12/10/19 12/27/19 Unknown History Reported Home Medications] Active Medications Fentanyl (Sublimaze) 100 mcg IV ONCE PRN PRN Reason: sedation for nerve block Fentanyl (Sublimaze) 50 mcg IV Q5MIN PRN PRN Reason: Pain , Severe (7-10) Stop: 01/03/20 23:00 Cefazolin Sodium (Ancef/Sterile Water 2 Gm/20 Ml) 2 gm in 20 mls @ 80 mls/hr IV PREOP NR; Protocol Stop: 01/03/20 23:59 Sodium Chloride (Nacl 0.9% 1000 Ml) 1,000 mls @ 42 mls/hr IV DIRECT ERROL Stop: 01/03/20 23:59 Last Admin: 01/03/20 13:40 Dose: 42 mls/hr Documented by: Midazolam HCl (Versed) 2 mg IV PREOP NR Stop: 01/03/20 23:59 Oxycodone/Acetaminophen (Percocet 5/325) 2 tab PO Q4H PRN PRN Reason: Pain, Moderate (4-6) - Physical exam General appearance: no acute distress Lungs: Normal air movement Heart: Regular rate Extremities: no ischemia - Hospital course Hospital course: the patient was taken to the operating room and had a left arm av fistula revision performed. please refer to the operative note concerning details of the procedure. the patient tolerated the procedure well and was discharged home in stable condition. - Disposition Condition at discharge: Stable Disposition: DC- TO HOME OR SELFCARE - Discharge Diagnoses (1) End stage renal disease Status: Chronic Short Stay Discharge Plan Follow up with: [facility] [Primary Care Provider] - 7 Days
[2020-01-03] MEDS ORDERED: METOCLOPRAMIDE 10 MG/2 ML INJ ONE (18:35)
[2020-01-03] MEDS ORDERED: METOCLOPRAMIDE 10 MG/2 ML INJ IV ONE (18:35)
[2020-01-03] MEDS ORDERED: PROMETHAZINE 25 MG RECT SUPP PR ONE ×2 (18:51→18:58)
--- NOTE | 2020-01-03 19:11 | Operative Report ---
STAFF SURGEON: Dr. Ricardo Morris. PREOPERATIVE DIAGNOSIS: End-stage renal disease. POSTOPERATIVE DIAGNOSIS: End-stage renal disease. PROCEDURE PERFORMED: Left arm cephalic vein transposition. COMPLICATIONS: None. ESTIMATED BLOOD LOSS: 25 mL. ANESTHESIA: General. INDICATIONS FOR PROCEDURE: This is a 54-year-old gentleman with end-stage renal disease, on hemodialysis who had cephalic vein transposition that on attempted cannulation was infiltrated. The patient had a diagnostic fistulogram which demonstrated a widely patent AV fistula with multiple branches and it was felt that the fistula was too deep, so that it was felt that the patient would benefit from transposition of his AV fistula to assist with cannulation. The patient was explained the risks, benefits and alternatives of procedure, expressed understanding and wished to proceed. DESCRIPTION OF PROCEDURE: After appropriate consent was obtained, the patient was brought back to the operating room and placed on the operating table in supine position with left arm extended. The patient was given appropriate medication for general anesthesia, had LMA placed without difficulty. Left arm was prepped and draped in usual sterile fashion with ChloraPrep. Appropriate preoperative antibiotics were administered. Appropriate timeout was performed indicating correct patient, procedure, and site of procedure. I then began the operation by making a longitudinal incision over the AV fistula near the antecubital fossa. This was then extended up the arm near the shoulder. This was carried through subcutaneous tissue with a combination of blunt dissection and electrocautery, the AV fistula was identified and mobilized in its entirety. The branches of the AV fistula were ligated with silk suture and transected. Once the fistula was completely mobilized, the anterior surface was marked. Vascular clamps were then placed on the AV fistula both proximally and distally. This was then transected near the arterial anastomosis, then proceeded to create a subcutaneous tunnel medial to the incision and brought through the AV fistula in a more superficial fashion. Both ends were spatulated and then end-to-end anastomosis was performed with a running 6-0 Prolene suture. There were 2 areas along the suture line that had to be repaired. Wound was repaired using bovine pericardial patch as to limit the tension on the suture line and now there was a primary repair with a 6-0 Prolene suture. Once flow was reestablished through the fistula, he had a nice palpable thrill. We then looked to obtain further hemostasis along the suture line with hemostatic agents. Once we were satisfied with hemostasis, we then proceeded to close the wound with deep subcutaneous layer with interrupted 3-0 PDS. Skin was approximated with yessica. Appropriate dressing was placed. The patient tolerated the procedure well, emerged from the general anesthesia, had LMA removed and was sent to recovery in stable condition. All the instruments, sponges and needles counts were correct at completion of the operation. JOB# [id number] N/HAO
[2020-01-03 19:53] VITALS: BP 142/85
--- NOTE | 2020-01-03 20:02 | Post Anesthesia Evaluation ---
- Post Anesthesia Evaluation Patient Participated: Yes Airway Patent: Yes Stable Respiratory Function: Yes Nausea/Vomiting: Yes (required IV and AL antiemetics; resolved at discharge.) Temp > 96.8F: Yes Pain Manageable: Yes Adequeate Hydration: Yes Anesthesia Complications: No
== END 2020-01-03 20:30 | disposition home or self-care (01) ==
LOC: OR 10:34
PROVIDERS: ATTEND Surgery Vascular Surgery
DX: I12.0 Hypertensive chronic kidney disease with stage 5 chronic kidney disease or end stage renal disease (principal); E11.22 Type 2 diabetes mellitus with diabetic chronic kidney disease; N18.6 End stage renal disease; G43.909 Migraine, unspecified, not intractable, without status migrainosus; E11.42 Type 2 diabetes mellitus with diabetic polyneuropathy; G62.9 Polyneuropathy, unspecified; E78.00 Pure hypercholesterolemia, unspecified; G47.30 Sleep apnea, unspecified; K21.9 Gastro-esophageal reflux disease without esophagitis; Z99.2 Dependence on renal dialysis; Z98.42 Cataract extraction status, left eye; Z86.2 Personal history of diseases of the blood and blood-forming organs and certain disorders involving the immune mechanism; Z86.73 Personal history of transient ischemic attack (TIA), and cerebral infarction without residual deficits; Z98.890 Other specified postprocedural states
CPT/HCPCS: 36415; 80048; 82962; 85027; A4649; C1768; J0690; J1100; J1170; J1644; J2405; J2704; J2765; J3010; J7030; J7050

== ENCOUNTER 2020-06-11 14:15 | Inpatient (IN) | payer OTHER ==
--- NOTE | 2020-06-11 15:39 | Emergency Department Report ---
ED General Adult HPI - General Chief complaint: Extremity Problem,Nontraumatic Stated complaint: CLOGGED FISTULA PUI?: No Time Seen by Provider: 06/11/20 15:18 Source: patient, RN notes reviewed, old records reviewed Mode of arrival: Ambulatory Limitations: Physical Limitation - History of Present Illness Initial comments: The patient was evaluated in the emergency department for symptoms described in the history of present illness. He/she was evaluated in the context of the global COVID-19 pandemic, which necessitated consideration that the patient might be at risk for infection with the virus that causes COVID-19. Inst itutional protocols and algorithms that pertain to the evaluation of patients at risk for COVID-19 are in a state of rapid change based on information released by regulatory bodies including the CDC and federal and state organizations. These policies and algorithms were followed during the patient's care in the emergency department. Please note that these policies, procedures and recommendations changed on a rapid basis. Nephrology: Dr. Aragon, Dr. Carreon Vascular surgery: Dr. Morris Patient is a 55-year-old gentleman, with history of end-stage renal disease, patient with impairment, on hemodialysis, Tuesday, Tuesday, Tuesday, last hemodialysis session was this past Tuesday, incomplete secondary to thrombosed AV fistula. He is sent to the emergency room by the aforementioned vascular francesco geon for admission for therapeutic/diagnostic thrombectomy/fistulogram in the [facility], and appropriate hemodialysis. The patient denies all complaints. He has not eaten today. Contacted the aforementioned vascular surgeon, who indicates he would like to take the patient to the [facility] urgently for the aforementioned procedure. Contacted the aforementioned computer repair instructor, Dr. Carreon, discussed history, physical, pertinent laboratory studies. They will arrange for hemodialysis. Hospital physician, Dr. Zee to admit patient to the medical service. Patient is amenable to this plan of care. Patient denies Covid symptomatology. He states his left upper extremity fistula has not been working well since Tuesday. -: days(s) Location: left, upper extremity Consistency: constant Improves with: none Worsens with: none Associated Symptoms: denies other symptoms - Related Data Previous Rx's Medication Instructions Recorded Last Taken Type oxyCODONE /ACETAMINOPHEN [Percocet 1 tab PO Q6HR PRN #24 tablet 01/03/20 Unknown Rx 5/325 mg] Allergies Allergy/AdvReac Type Severity Reaction Status Date / Time No Known Allergies Allergy Verified 12/27/19 16:15 ED Review of Systems ROS: Stated complaint: CLOGGED FISTULA Other details as noted in HPI Comment: As per history of present illness ED Past Medical Hx - Past Medical History Previous Medical History?: Yes Hx Hypertension: Yes (resolved since starting HD [id number]) Hx Heart Attack/AMI: No Hx Diabetes: Yes Hx GERD: Yes (No longer taking any meds) Hx Liver Disease: No Hx Renal Disease: Yes Hx Headaches / Migraines: Yes (Migraines) - Surgical History Past Surgical History?: Yes Additional Surgical History: fistula placement - Social History Smoking Status: Former Smoker - Medications Home Medications: Home Medications Medication Instructions Recorded Confirmed Last Taken Type oxyCODONE /ACETAMINOPHEN [Percocet 1 tab PO Q6HR PRN #24 tablet 01/03/20 Unknown Rx 5/325 mg] ED Physical Exam - General Limitations: No Limitations, Other (Patient is visually impaired) General appearance: alert, in no apparent distress - Head Head exam: Present: atraumatic, normocephalic - Eye Eye exam: Present: normal appearance, EOMI - ENT ENT exam: Present: normal exam, normal orophraynx, mucous membranes moist, normal external ear exam - Neck Neck exam: Present: normal inspection, full ROM. Absent: tenderness, meningismus - Respiratory Respiratory exam: Present: normal lung sounds bilaterally. Absent: respiratory distress, wheezes, rales, rhonchi, stridor, decreased breath sounds - Cardiovascular Cardiovascular Exam: Present: regular rate, normal rhythm, normal heart sounds. Absent: bradycardia, tachycardia, irregular rhythm, systolic murmur, diastolic murmur, rubs, gallop - GI/Abdominal GI/Abdominal exam: Present: soft. Absent: distended, tenderness, guarding, rebound, rigid, pulsatile mass - Rectal Rectal exam: Present: deferred - Extremities Exam Extremities exam: Present: normal inspection (A thrombosed left upper extremity fistula is appreciated. There is no thrill appreciated. There is no tenderness appreciated.), full ROM, pedal edema, other (2+ pulses noted in the bilateral upper and lower extremities. There is no palpable cord. negative Homans sign. Muscular compartments are soft. The pelvis is stable.). Absent: calf tenderness - Back Exam Back exam: Present: normal inspection. Absent: tenderness, CVA tenderness (R), CVA tenderness (L), paraspinal tenderness, vertebral tenderness - Neurological Exam Neurological exam: Present: alert, other (No facial droop. Tongue midline. Extraocular movements intact bilaterally. Facial sensation intact to light touch in V1, V2, V3 distribution bilaterally. 5 and a 5 strength in 4 extremities. Sensation intact to light touch in 4 extremities.) - Psychiatric Psychiatric exam: Present: normal affect, normal mood - Skin Skin exam: Present: warm, dry, intact, normal color. Absent: rash ED Course Vital Signs 06/11/20 06/11/20 06/11/20 14:28 15:25 15:31 Temperature 97.8 F Pulse Rate 88 109 H 79 Respiratory 18 12 13 Rate Blood Pressure Blood Pressure 191/97 [Right] O2 Sat by Pulse 99 Oximetry 06/11/20 06/11/20 06/11/20 16:01 18:51 19:01 Temperature Pulse Rate 78 99 H Respiratory 13 17 Rate Blood Pressure 189/110 193/97 176/106 Blood Pressure [Right] O2 Sat by Pulse 98 99 Oximetry - Reevaluation(s) Reevaluation #1: 06/11/20 19:13 Patient's right upper extremity IV infiltrated. Nursing team unable to establish IV access. I have personally evaluated the patient. I am unable to establish peripheral IV access. Patient does not require drips, or emergent intravenous medications. He is only being admitted at this time for hemodialysis after vascular surgery procedure. I will defer to the inpatient team to further manage this, patient does not require central line, or PICC line at this time, and does not currently have a condition that requires emergent placement of the IV. ED Medical Decision Making - Lab Data Result diagrams: 06/11/20 15:24 06/11/20 15:24 Vital Signs 06/11/20 14:28 Temperature 97.8 F Pulse Rate 88 Respiratory 18 Rate Blood Pressure 191/97 [Right] O2 Sat by Pulse 99 Oximetry Lab Results 06/11/20 06/11/20 06/11/20 Range/Units 15:24 15:24 15:24 WBC 5.9 (4.5-11.0) K/mm3 RBC 3.83 (3.65-5.03) M/mm3 Hgb 11.5 L (11.8-15.2) gm/dl Hct 34.8 L (35.5-45.6) % MCV 91 (84-94) fl MCH 30 (28-32) pg MCHC 33 (32-34) % RDW 15.3 H (13.2-15.2) % Plt Count 240 (140-440) K/mm3 PT 12.7 (12.2-14.9) Sec. INR 0.94 (0.87-1.13) APTT 27.6 (24.2-36.6) Sec. Sodium 136 L (137-145) mmol/L Potassium 4.2 (3.6-5.0) mmol/L Chloride 93.3 L (98-107) mmol/L Carbon Dioxide 29 (22-30) mmol/L Anion Gap 18 mmol/L BUN 38 H (9-20) mg/dL Creatinine 10.5 H (0.8-1.3) mg/dL Estimated GFR 6 ml/min BUN/Creatinine Ratio 4 % Glucose 108 H (75-100) mg/dL Calcium 10.2 (8.4-10.2) mg/dL - Medical Decision Making Differential diagnosis, including but not limited to: Thrombosed AV fistula, end-stage renal disease on hemodialysis Assessment and plan: 55-year-old gentleman sent for admission for thrombosed AV fistula, and need for postprocedural hemodialysis. Nephrology, vascular surgery, internal medicine service on board. Critical care attestation.: If time is entered above; I have spent that time in minutes in the direct care of this critically ill patient, excluding procedure time. ED Disposition Clinical Impression: End stage renal disease Complication of AV dialysis fistula Qualifiers: Encounter type: initial encounter Qualified Code(s): T82.9XXA - Unspecified complication of cardiac and vascular prosthetic device, implant and graft, initial encounter Disposition: DC09 OP ADMIT IP TO THIS HOSP Is pt being admited?: Yes Does the pt Need Aspirin: No Condition: Good
--- NOTE | 2020-06-11 15:45 | History and Physical Report ---
History of Present Illness Chief complaint: My arm is swollen History of present illness: 55 YO Male with HTN, DM, Migraine PRUITT, ESRD on HD(M,W,F) presents to ED for evaluation. Pt states that he has experienced left arm swelling over the past 2 days with persistent symptoms over the same time frame. Pt was was seen and evaluated by his PCP and was instructed to seek further care at [facility]. Pt transported to [facility] via private vehicle. Pt seen and evaluated in ED and found to have thrombosed AV fistula, ESRD , as well as Accelerated HTN. Vascular surgery consulted in ED. Pt taken urgently to [facility] for surgical intervention. Pt denies fever, chills, CP, Palpitations, NVD, Trauma, BRBPR, Productive cough, skin rash, recent ill contacts, or known exposure to COVID-19. Prior admission on 12/06/19 reviewed. All listed medication has been reconciled at time of admission. Past History Past Medical History: diabetes, ESRD, hypertension, migraines Past Surgical History: Other (AV Fistula) Social history: . denies: smoking, alcohol abuse, prescription drug abuse Family history: diabetes, hypertension Medications and Allergies Allergies Allergy/AdvReac Type Severity Reaction Status Date / Time No Known Allergies Allergy Verified 12/27/19 16:15 Home Medications Medication Instructions Recorded Confirmed Last Taken Type oxyCODONE /ACETAMINOPHEN [Percocet 1 tab PO Q6HR PRN #24 tablet 01/03/20 Unknown Rx 5/325 mg] Review of Systems Constitutional: no weight loss, no weight gain Ears, nose, mouth and throat: no ear pain, no ear discharge, no tinnitis, no decreased hearing, no nose pain Cardiovascular: no chest pain, no orthopnea, no rapid/irregular heart beat, no syncope Respiratory: no cough, no cough with sputum, no hemoptysis, no shortness of breath Gastrointestinal: no abdominal pain, no nausea, no diarrhea, no constipation, no change in bowel habits Genitourinary Male: no hematuria, no flank pain, no discharge, no urinary frequency, no urinary hesitancy Rectal: no pain, no incontinence, no bleeding Musculoskeletal: no neck stiffness, no shooting arm pain, no arm numbness/tingling, no low back pain, no leg numbness/tingling Integumentary: no rash, no redness, no wounds, no jaundice, no boils Neurological: no transient paralysis, no paralysis, no weakness, no parathesias, no seizures, no syncope Psychiatric: no anxiety, no memory loss, no sleep disturbances, no hypersomnia, no suicidal ideation Endocrine: no cold intolerance, no heat intolerance, no excessive thirst, no polyuria, no nocturia Hematologic/Lymphatic: no easy bruising Allergic/Immunologic: no urticaria, no allergic rhinitis Exam - Constitutional Vitals: Temp Pulse Resp BP Pulse Ox 97.8 F 88 18 191/97 99 06/11/20 14:28 06/11/20 14:28 06/11/20 14:28 06/11/20 14:28 06/11/20 14:28 General appearance: Present: mild distress - EENT Eyes: Present: PERRL ENT: hearing intact, clear oral mucosa - Neck Neck: Present: supple, normal ROM - Respiratory Respiratory effort: normal Respiratory: bilateral: CTA - Cardiovascular Heart Sounds: Present: S1 & S2. Absent: rub, click - Extremities Extremities: pulses symmetrical, No edema Extremity abnormal: edema, other (LUE Edema) Peripheral Pulses: within normal limits - Abdominal General gastrointestinal: Present: soft, non-tender, non-distended, normal bowel sounds Male genitourinary: Present: normal - Integumentary Integumentary: Present: clear, warm, dry - Musculoskeletal Musculoskeletal: gait normal, strength equal bilaterally - Psychiatric Psychiatric: appropriate mood/affect, intact judgment & insight - Neurologic Neurologic: CNII-XII intact, moves all extremities Results - Labs CBC & Chem 7: 06/11/20 15:24 06/11/20 15:24 Assessment and Plan - Patient Problems (1) Complication of AV dialysis fistula Current Visit: Yes Status: Acute Qualifiers: Encounter type: initial encounter Qualified Code(s): T82.9XXA - Unspecified complication of cardiac and vascular prosthetic device, implant and graft, initial encounter Plan to address problem: Vascular surgery consulted in ED. (2) Accelerated hypertension Current Visit: Yes Status: Acute Plan to address problem: Monitor BP q shift, continue medical management, supportive care. (3) End stage renal disease Current Visit: Yes Status: Chronic Plan to address problem: Nephrology consulted in ED, dialysis as per renal team. (4) DVT prophylaxis Current Visit: Yes Status: Acute Plan to address problem: SCD to BLE while in bed, Pt is ambulatory
[2020-06-11] MEDS ORDERED: ONDANSETRON 4 MG/2 ML INJ IV PRN (15:46)
[2020-06-11] MEDS ORDERED: ACETAMINOPHEN 325 MG TAB PO PRN (15:46)
--- NOTE | 2020-06-11 15:48 | Consultation ---
History of Present Illness - Reason for Consult Consult date: 06/11/20 clotted av graft Requesting physician: BRYCE SONG - History of Present Illness HPI: 55 year old male with ESRD on HD via left arm av fistula who presents with thromboed av fistula. The patient last had dialysis Tuesday. The patient denies any recent issues with his access. I have been consulted to address the patient's clotted access. Patent with no other complaints. ROS: as per HPI, otherwise negative PE: NAD, A&Ox3 RRR non-labored respirations left arm av fistula, no pulse or thrill noted Plan: I will plan to take patient to the [facility] for thrombectomy, if not successful then will place permcath. Patient to be admitted by [facility] to undergo dialysis following intervention. Consent obtained. Medications and Allergies Allergies Allergy/AdvReac Type Severity Reaction Status Date / Time No Known Allergies Allergy Verified 12/27/19 16:15 Home Medications Medication Instructions Recorded Confirmed Last Taken Type oxyCODONE /ACETAMINOPHEN [Percocet 1 tab PO Q6HR PRN #24 tablet 01/03/20 Unknown Rx 5/325 mg] Exam - Constitutional Vitals: Temp Pulse Resp BP Pulse Ox 97.8 F 88 18 191/97 99 06/11/20 14:28 06/11/20 14:28 06/11/20 14:28 06/11/20 14:28 06/11/20 14:28
[2020-06-11 15:50] LABS: Hematocrit 34.8 % (35.5-45.6); Hemoglobin 11.5 gm/dl (11.8-15.2); Mean Corpuscular HGB Conc 33 % (32-34); Mean Corpuscular Volume 91 fl (84-94); Platelet Count 240 K/mm3 (140-440); Red Blood Count 3.83 M/mm3 (3.65-5.03); Red Cell Distribution Width 15.3 % (13.2-15.2)
[2020-06-11] MEDS ORDERED: HEPARIN/NS 5000 UNIT/500ML 1,000 ML IR ONE (15:55)
[2020-06-11] MEDS ORDERED: HEPARIN 10,000 UNITS/10 ML VIAL ONE (15:55)
[2020-06-11] MEDS ORDERED: SODIUM CHLORIDE 0.9% 250ML 250 ML ONE (15:56)
[2020-06-11] MEDS ORDERED: LIDOCAINE (2%) 20 MG/1 ML VIAL 20 ML MDV INFILTRATI ONE (15:56)
[2020-06-11 16:01] LABS: Calcium 10.2 mg/dL (8.4-10.2)
[2020-06-11 16:04] LABS: INR 0.94 (0.87-1.13); Partial Thromboplastin Time 27.6 Sec. (24.2-36.6)
[2020-06-11] MEDS ORDERED: ALTEPLASE 2 MG INJ IV NR (16:45)
[2020-06-11] MEDS ORDERED: WATER FOR INJ Sterile (PF) 10 ML ONE (16:48)
[2020-06-11] MEDS: fentaNYL 100 MCG/2 ML INJ ONE ×2 (16:50→17:39)
[2020-06-11] MEDS: MIDAZOLAM 2 MG/2 ML INJ ONE ×2 (16:50→17:39)
[2020-06-11] MEDS ORDERED: ALTEPLASE 2 MG INJ ONE (16:50)
[2020-06-11] MEDS: hydrALAZINE 20 MG/1 ML INJ ONE ×2 (17:19→18:12)
[2020-06-11] MEDS ORDERED: fentaNYL 100 MCG/2 ML INJ ONE (17:40)
[2020-06-11] MEDS ORDERED: MIDAZOLAM 2 MG/2 ML INJ ONE (17:41)
[2020-06-11 17:56] LABS: Basophils % (Manual) 0 % (0.0-1.8); Eosinophils % (Manual) 0 % (0.0-4.3); Total Cells Counted 100
[2020-06-11 17:58] LABS: Macrocytosis Rare; Platelet Estimate Consistent w Auto
--- NOTE | 2020-06-11 18:22 | Post Operative Note ---
Date of procedure: 06/11/20 Pre-op diagnosis: ESRD Post-op diagnosis: same Findings: 99% stenosis of the body of the av fistula with thrombosed brachiocephalic av fistula, no central venous stenosis, no stenosis of the arterial anastomosis Procedure: 1. Ultrasound Access of Left Arm AV Fistula x 2 2. Left Arm AV Fistula Percutaneous Thrombectomy 3. Left Upper Extremity Diagnostic Angiogram with 1st Order Catheter Placement Anesthesia: MAC, local Surgeon: ERNST AGUAYO Estimated blood loss: other (25ml) Pathology: none Condition: stable Disposition: observation
--- NOTE | 2020-06-11 19:05 | Operative Report ---
STAFF SURGEON: Dr. Ricardo Morris. PREOPERATIVE DIAGNOSIS: End-stage renal disease with a thrombosed left arm arteriovenous fistula. POSTOPERATIVE DIAGNOSIS: End-stage renal disease with a thrombosed left arm arteriovenous fistula. PROCEDURES PERFORMED: 1. Ultrasound access of left arm arteriovenous fistula x2. 2. Left arm arteriovenous fistula percutaneous thrombectomy. 3. Left upper extremity diagnostic angiogram with first order catheter placement. COMPLICATIONS: None. ESTIMATED BLOOD LOSS: 25 mL. ANESTHESIA: Local MAC. ANGIOGRAPHIC FINDINGS: The patient had a 99% stenosis of the body of the AV fistula near the cephalo-subclavian junction with thrombosis of the brachiocephalic AV fistula. There was no evidence of central venous stenosis and no stenosis noted at the arterial anastomosis. INDICATIONS FOR PROCEDURE: This is a 55-year-old gentleman with end-stage renal disease, on hemodialysis via left arm AV fistula, who was found to be thrombosed at his dialysis center. The patient was therefore sent to the Emergency Department and vascular consultation was obtained for evaluation and possible intervention. The patient and the patient's family were explained all the risks, benefits and alternatives of procedure, expressed understanding and wished to proceed. DESCRIPTION OF PROCEDURE: After appropriate consent was obtained, the patient was brought back to the catheter builder, placed on the table in supine position with the left arm extended. The left arm was prepped and draped in usual sterile fashion with ChloraPrep. Appropriate timeout was performed indicating correct patient, procedure, and site of procedure. We then began the intervention by obtaining percutaneous access of the left arm AV fistula near the antecubital fossa towards the venous outflow under ultrasound guidance using a micropuncture technique. Once we obtained access, needle was exchanged for a micropuncture sheath using Seldinger technique. This was then upsized to a 7-Ecuadorean sheath over a stiff J wire, then a combination of Glidewire and a vertebral catheter were advanced into the central venous system. The contrast was then infused through the catheter while retracting it towards the sheath, which demonstrated the findings noted above. The catheter was then advanced centrally. We then proceeded to lace the fistula with 4 mg of TPA. The vertebral catheter and Glidewire were then advanced again into the central venous system and then the Glidewire was exchanged for a Bentson wire. The vertebral catheter was removed. We then proceeded to obtain a second access of the AV fistula towards the arterial anastomosis, again using a micropuncture technique under ultrasound guidance. Once we obtained access, the sheath was eventually upsized to a 7-Ecuadorean sheath over a stiff J wire. The patient was given 5000 units of unfractionated heparin. After appropriate had timeout elapsed, we then proceeded to place a Glidewire and vertebral catheter into the brachial artery. The catheter was removed and over the wire, a Ramon catheter was placed into the brachial artery. Then, under negative suction, proceeded to perform a thrombectomy of the fistula. This was done twice and significant clot was removed each time. At this point, pulsatile flow was obtained within the AV fistula. We then took an 8 x 80 balloon through our initial sheath towards the central venous outflow and then proceeded to balloon angioplasty the rest of the AV fistula, macerating the rest of the thrombus. The area of the significant stenosis in the body of the fistula then was unable to adequately allow the balloon to go to profile and so an 8 mm x 40 Conquest balloon was placed across this part of the lesion and was insufflated to profile. Once complete, we then attempted to remove the Conquest balloon; however, the balloon would not deflate properly, so both the balloon and sheath were removed as well as the wire. Due to the balloon enlarged in the access site, this was repaired with a 2-0 Prolene suture. Once that was complete and the proper hemostasis was obtained, then access was obtained again towards the venous outflow using micropuncture technique and upsized to a 7-Ecuadorean sheath, then I proceeded to take an 8 x 80 balloon back through the fistula and proceeded to balloon angioplasty the fistula once again. Once complete, I then proceeded to perform fistulogram, which demonstrated a less than 20% residual stenosis across that lesion and a widely patent fistula with adequate outflow. We then took a Glidewire and vertebral catheter in the second sheath towards the arterial outflow into the brachial artery. The Glidewire was removed and a diagnostic angiogram of the left upper extremity was performed, which demonstrated the findings noted above. With this, we then proceeded to remove all our wires and catheters and sheaths and the access sites were both closed with 3-0 nylon suture in a [id number] stitch. Appropriate dressings were placed once the patient had a nice palpable thrill. He tolerated the procedure well and remained in stable condition and was sent to recovery in stable condition. JOB# [id number] CRYSTAL/HAO
[2020-06-12 00:03] LABS: Hepatitis B Surface Antigen Non-Reactive (Negative); Hepatitis C Virus Antibody Non-Reactive (NonReactive)
[2020-06-12 05:06] LABS: Basophils % (Auto) 0.5 % (0.0-1.8); Eosinophils # (Auto) 0.1 K/mm3 (0.0-0.4); Eosinophils % (Auto) 2.4 % (0.0-4.3); Hematocrit 29.9 % (35.5-45.6); Lymphocytes # (Auto) 1.4 K/mm3 (1.2-5.4); Lymphocytes % (Auto) 24.7 % (13.4-35.0); Mean Corpuscular HGB Conc 34 % (32-34); Mean Corpuscular Volume 90 fl (84-94); Monocytes # (Auto) 0.6 K/mm3 (0.0-0.8); Monocytes % (Auto) 9.9 % (0.0-7.3); Platelet Count 201 K/mm3 (140-440); Red Blood Count 3.32 M/mm3 (3.65-5.03); Red Cell Distribution Width 15.4 % (13.2-15.2)
[2020-06-12 05:21] LABS: Calcium 9.5 mg/dL (8.4-10.2)
--- NOTE | 2020-06-12 08:51 | Consultation ---
History of Present Illness - Reason for Consult end stage renal disease - History of Present Illness Very pleasant 55-year-old -[place] male with a past medical history of end-stage renal disease in the setting of diabetes, hypertension, well-known to our outpatient clinic, who presented essentially with a thrombosed AV fistula. He underwent thrombectomy yesterday with vascular surgery postoperative day #1. Good thrill and bruit noted on examination this morning. We will plan for dialysis today. Past History Past Medical History: diabetes, ESRD, hypertension, migraines Past Surgical History: Other (AV Fistula) Social history: . denies: smoking, alcohol abuse, prescription drug abuse Family history: diabetes, hypertension Medications and Allergies Allergies Allergy/AdvReac Type Severity Reaction Status Date / Time No Known Allergies Allergy Verified 12/27/19 16:15 Home Medications Medication Instructions Recorded Confirmed Last Taken Type No Known Home Medications [No 06/11/20 06/11/20 Unknown History Reported Home Medications] Active Meds: Active Medications Acetaminophen (Tylenol) 650 mg PO Q4H PRN PRN Reason: Pain MILD(1-3)/Fever >100.5/PRUITT Ondansetron HCl (Zofran) 4 mg IV Q8H PRN PRN Reason: Nausea And Vomiting Sodium Chloride (Sodium Chloride Flush Syringe 10 Ml) 10 ml IV BID ERROL Last Admin: 06/11/20 21:47 Dose: Not Given Documented by: Sodium Chloride (Sodium Chloride Flush Syringe 10 Ml) 10 ml IV PRN PRN PRN Reason: LINE FLUSH Review of Systems All systems: negative Constitutional: fatigue Exam - Vital Signs Vital signs: Vital Signs Temp Pulse Resp BP Pulse Ox 97.8 F 88 18 191/97 99 06/11/20 14:28 06/11/20 14:28 06/11/20 14:28 06/11/20 14:28 06/11/20 14:28 - General Appearance General appearance: well-developed, well-nourished, appears stated age EENT: ATNC, PERRL Neck: Present: neck supple, trachea midline Respiratory: Clear to Ascultation Heart: regular Gastrointestinal: Present: normal, normoactive bowel sounds Integumentary: no rash, warm and dry Neurologic: no focal deficit, alert and oriented x3 Psychiatric: mood/affect appropriate, cooperative Results - Lab Results 06/12/20 04:34 06/12/20 04:34 Most recent lab results Calcium 9.5 mg/dL (8.4-10.2) 06/12/20 04:34 Assessment and Plan - Patient Problems (1) Complication of AV dialysis fistula Current Visit: No Status: Acute Qualifiers: Encounter type: initial encounter Qualified Code(s): T82.9XXA - Unspecified complication of cardiac and vascular prosthetic device, implant and graft, initial encounter Plan to address problem: Status post thrombectomy postoperative day #1. Further recommendations per vascular surgery. (2) End stage renal disease Current Visit: No Status: Chronic Plan to address problem: Orders placed for dialysis today after which we will place him back on his Tuesday hemodialysis schedule. (3) Hypertensive chronic kidney disease with stage 1 through stage 4 chronic kidney disease, or unspecified chronic kidney disease Current Visit: No Status: Chronic Plan to address problem: Monitor blood pressures on the current regimen. (4) Type 2 diabetes mellitus with diabetic chronic kidney disease Current Visit: No Status: Chronic Plan to address problem: Diabetes management per primary attending.
--- NOTE | 2020-06-12 09:28 | Progress Note ---
Assessment and Plan Assessment and plan: Complication of AV dialysis fistula Vascular surgery consulted in ED. Patient with thrombosed AV fistula s/p thrombectomy per vascular surgery. Accelerated hypertension Monitor BP q shift, continue medical management, supportive care. End stage renal disease Nephrology consulted in ED, dialysis as per renal team. DVT prophylaxis SCD to BLE while in bed, Pt is ambulatory History Interval history: No new issues overnight. Hospitalist Physical - Constitutional Vitals: Temp Pulse Resp BP Pulse Ox 97.9 F 97 H 18 153/79 96 06/12/20 08:43 06/12/20 08:43 06/12/20 08:43 06/12/20 08:43 06/12/20 08:43 General appearance: Present: mild distress - EENT Eyes: Present: PERRL, EOM intact ENT: hearing intact, clear oral mucosa, dentition normal - Neck Neck: Present: supple, normal ROM - Respiratory Respiratory effort: normal Respiratory: bilateral: CTA - Cardiovascular Rhythm: regular Heart Sounds: Present: S1 & S2. Absent: gallop, rub - Extremities Extremities: no ischemia, No edema, Full ROM - Abdominal General gastrointestinal: soft, non-tender, non-distended, normal bowel sounds - Integumentary Integumentary: Present: clear, warm, dry - Neurologic Neurologic: CNII-XII intact, moves all extremities Results - Labs CBC & Chem 7: 06/12/20 04:34 06/12/20 04:34 Labs: Laboratory Last Values WBC 5.6 K/mm3 (4.5-11.0) 06/12/20 04:34 RBC 3.32 M/mm3 (3.65-5.03) L 06/12/20 04:34 Hgb 10.0 gm/dl (11.8-15.2) L 06/12/20 04:34 Hct 29.9 % (35.5-45.6) L 06/12/20 04:34 MCV 90 fl (84-94) 06/12/20 04:34 MCH 30 pg (28-32) 06/12/20 04:34 MCHC 34 % (32-34) 06/12/20 04:34 RDW 15.4 % (13.2-15.2) H 06/12/20 04:34 Plt Count 201 K/mm3 (140-440) 06/12/20 04:34 Lymph % (Auto) 24.7 % (13.4-35.0) 06/12/20 04:34 [place] % (Auto) 9.9 % (0.0-7.3) H 06/12/20 04:34 Eos % (Auto) 2.4 % (0.0-4.3) 06/12/20 04:34 Baso % (Auto) 0.5 % (0.0-1.8) 06/12/20 04:34 Lymph # (Auto) 1.4 K/mm3 (1.2-5.4) 06/12/20 04:34 [place] # (Auto) 0.6 K/mm3 (0.0-0.8) 06/12/20 04:34 Eos # (Auto) 0.1 K/mm3 (0.0-0.4) 06/12/20 04:34 Baso # (Auto) 0.0 K/mm3 (0.0-0.1) 06/12/20 04:34 Add Manual Diff Complete 06/11/20 15:24 Total Counted 100 06/11/20 15:24 Seg Neutrophils % 62.5 % (40.0-70.0) 06/12/20 04:34 Seg Neuts % (Manual) 63.0 % (40.0-70.0) 06/11/20 15:24 Band Neutrophils % 0 % 06/11/20 15:24 Lymphocytes % (Manual) 28.0 % (13.4-35.0) 06/11/20 15:24 Reactive Lymphs % (Man) 0 % 06/11/20 15:24 Monocytes % (Manual) 9.0 % (0.0-7.3) H 06/11/20 15:24 Eosinophils % (Manual) 0 % (0.0-4.3) 06/11/20 15:24 Basophils % (Manual) 0 % (0.0-1.8) 06/11/20 15:24 Metamyelocytes % 0 % 06/11/20 15:24 Myelocytes % 0 % 06/11/20 15:24 Promyelocytes % 0 % 06/11/20 15:24 Blast Cells % 0 % 06/11/20 15:24 Nucleated RBC % Not Reportable 06/11/20 15:24 Seg Neutrophils # 3.5 K/mm3 (1.8-7.7) 06/12/20 04:34 Seg Neutrophils # Man 3.7 K/mm3 (1.8-7.7) 06/11/20 15:24 Band Neutrophils # 0.0 K/mm3 06/11/20 15:24 Lymphocytes # (Manual) 1.7 K/mm3 (1.2-5.4) 06/11/20 15:24 Abs React Lymphs (Man) 0.0 K/mm3 06/11/20 15:24 Monocytes # (Manual) 0.5 K/mm3 (0.0-0.8) 06/11/20 15:24 Eosinophils # (Manual) 0.0 K/mm3 (0.0-0.4) 06/11/20 15:24 Basophils # (Manual) 0.0 K/mm3 (0.0-0.1) 06/11/20 15:24 Metamyelocytes # 0.0 K/mm3 06/11/20 15:24 Myelocytes # 0.0 K/mm3 06/11/20 15:24 Promyelocytes # 0.0 K/mm3 06/11/20 15:24 Blast Cells # 0.0 K/mm3 06/11/20 15:24 WBC Morphology Not Reportable 06/11/20 15:24 Hypersegmented Neuts Not Reportable 06/11/20 15:24 Hyposegmented Neuts Not Reportable 06/11/20 15:24 Hypogranular Neuts Not Reportable 06/11/20 15:24 Smudge Cells Not Reportable 06/11/20 15:24 Toxic Granulation Not Reportable 06/11/20 15:24 Toxic Vacuolation Not Reportable 06/11/20 15:24 Dohle Bodies Not Reportable 06/11/20 15:24 Pelger-Huet Anomaly Not Reportable 06/11/20 15:24 Dar Rods Not Reportable 06/11/20 15:24 Platelet Estimate Consistent w auto 06/11/20 15:24 Clumped Platelets Not Reportable 06/11/20 15:24 Plt Clumps, EDTA Not Reportable 06/11/20 15:24 Large Platelets Not Reportable 06/11/20 15:24 Giant Platelets Not Reportable 06/11/20 15:24 Platelet Satelliting Not Reportable 06/11/20 15:24 Plt Morphology Comment Not Reportable 06/11/20 15:24 RBC Morphology Not Reportable 06/11/20 15:24 Dimorphic RBCs Not Reportable 06/11/20 15:24 Polychromasia Not Reportable 06/11/20 15:24 Hypochromasia Not Reportable 06/11/20 15:24 Poikilocytosis Not Reportable 06/11/20 15:24 Anisocytosis Not Reportable 06/11/20 15:24 Microcytosis Not Reportable 06/11/20 15:24 Macrocytosis Rare 06/11/20 15:24 Spherocytes Not Reportable 06/11/20 15:24 Pappenheimer Bodies Not Reportable 06/11/20 15:24 Sickle Cells Not Reportable 06/11/20 15:24 Target Cells Not Reportable 06/11/20 15:24 Tear Drop Cells Not Reportable 06/11/20 15:24 Ovalocytes Not Reportable 06/11/20 15:24 Helmet Cells Not Reportable 06/11/20 15:24 [place] Bodies Not Reportable 06/11/20 15:24 [place] Rings Not Reportable 06/11/20 15:24 Golden Cells Not Reportable 06/11/20 15:24 Bite Cells Not Reportable 06/11/20 15:24 Crenated Cell Not Reportable 06/11/20 15:24 Elliptocytes Not Reportable 06/11/20 15:24 Acanthocytes (Spur) Not Reportable 06/11/20 15:24 Rouleaux Not Reportable 06/11/20 15:24 Hemoglobin C Crystals Not Reportable 06/11/20 15:24 Schistocytes Not Reportable 06/11/20 15:24 Malaria parasites Not Reportable 06/11/20 15:24 Federico Bodies Not Reportable 06/11/20 15:24 Hem Pathologist Commnt No 06/11/20 15:24 PT 12.7 Sec. (12.2-14.9) 06/11/20 15:24 INR 0.94 (0.87-1.13) 06/11/20 15:24 APTT 27.6 Sec. (24.2-36.6) 06/11/20 15:24 Sodium 141 mmol/L (137-145) 06/12/20 04:34 Potassium 4.1 mmol/L (3.6-5.0) 06/12/20 04:34 Chloride 96.7 mmol/L (98-107) L 06/12/20 04:34 Carbon Dioxide 29 mmol/L (22-30) 06/12/20 04:34 Anion Gap 19 mmol/L 06/12/20 04:34 BUN 43 mg/dL (9-20) H 06/12/20 04:34 Creatinine 11.1 mg/dL (0.8-1.3) H 06/12/20 04:34 Estimated GFR 6 ml/min 06/12/20 04:34 BUN/Creatinine Ratio 4 % 06/12/20 04:34 Glucose 84 mg/dL (75-100) 06/12/20 04:34 POC Glucose 75 mg/dL (70-105) 06/12/20 09:02 Calcium 9.5 mg/dL (8.4-10.2) 06/12/20 04:34 Hepatitis A IgM Ab Non-reactive (NonReactive) 06/11/20 22:49 Hep Bs Antigen Non-reactive (Negative) 06/11/20 22:49 Hep B Core IgM Ab Non-reactive (NonReactive) 06/11/20 22:49 Hepatitis C Antibody Non-reactive (NonReactive) 06/11/20 22:49 [place]/IV: Voiding Method Urinal IV Catheter Type [Right INT / Saline Lock Antecubital] Active Medications - Current Medications Current Medications: Generic Name Dose Route Start Last Admin Trade Name Freq PRN Reason Stop Dose Admin Acetaminophen 650 mg 06/11/20 15:46 Tylenol PO Q4H PRN Pain MILD(1-3)/Fever >100.5/PRUITT Ondansetron HCl 4 mg 06/11/20 15:46 Zofran IV Q8H PRN Nausea And Vomiting Sodium Chloride 10 ml 06/11/20 22:00 06/11/20 21:47 Sodium Chloride Flush Syringe 10 Ml IV Not Given BID REROL Sodium Chloride 10 ml 06/11/20 15:46 Sodium Chloride Flush Syringe 10 Ml IV PRN PRN LINE FLUSH
--- NOTE | 2020-06-13 10:29 | Discharge Summary ---
Providers - Providers Date of Admission: 06/11/20 15:46 Date of discharge: 06/13/20 Attending physician: ARCELIA UNDERWOOD 06/11/20 15:38 Consult to Physician [CONS] Urgent Comment: Consulting Provider: AKROL MORALES Physician Instructions: Reason For Exam: esrd 06/11/20 15:39 Consult to Physician [CONS] Urgent Comment: Consulting Provider: ERNST AGUAYO Physician Instructions: Reason For Exam: av fistula malfunction Primary care physician: RN PERIOPERATIVE Hospitalization Reason for admission: ESRD Condition: Good Hospital course: 55-year-old -[place] male with a past medical history of end-stage renal disease in the setting of diabetes, hypertension who presented essentially with a thrombosed AV fistula. He underwent thrombectomy with vascular surgery and tolerated the procedure well. The patient underwent hemodialysis after repair of the AV dialysis fistula and tolerated well. Patient is felt to receive maximal hospital benefit and will be discharged home. Dedicated discharge time 32 minutes. Disposition: DC-01 TO HOME OR SELFCARE Time spent for discharge: 32 - Discharge Diagnoses (1) Accelerated hypertension Status: Acute (2) Complication of AV dialysis fistula Status: Acute Qualifiers: Encounter type: initial encounter Qualified Code(s): T82.9XXA - Unspecified complication of cardiac and vascular prosthetic device, implant and graft, initial encounter (3) End stage renal disease Status: Chronic Core Measure Documentation - Palliative Care Palliative Care/ Comfort Measures: Not Applicable - Core Measures Any of the following diagnoses?: none Exam - Constitutional Vitals: Temp Pulse Resp BP Pulse Ox 98.6 F 87 20 153/84 99 06/13/20 07:27 06/13/20 07:27 06/13/20 07:27 06/13/20 07:27 06/13/20 07:27 General appearance: Present: no acute distress, well-nourished - EENT Eyes: Present: PERRL ENT: hearing intact, clear oral mucosa - Neck Neck: Present: supple, normal ROM - Respiratory Respiratory effort: normal Respiratory: bilateral: CTA - Cardiovascular Heart Sounds: Present: S1 & S2. Absent: rub, click - Extremities Extremities: pulses symmetrical, No edema Peripheral Pulses: within normal limits - Abdominal General gastrointestinal: Present: soft, non-tender, non-distended, normal bowel sounds Male genitourinary: Present: normal - Integumentary Integumentary: Present: clear, warm, dry - Musculoskeletal Musculoskeletal: gait normal, strength equal bilaterally - Psychiatric Psychiatric: appropriate mood/affect, intact judgment & insight - Neurologic Neurologic: CNII-XII intact, moves all extremities Plan Activity: advance as tolerated Weight Bearing Status: Weight Bear as Tolerated Diet: renal Follow up with: RENÉE GAVIRIA MD [Staff Physician] - 7 Days PRIMARY CARE, [Primary Care Provider] - 7 Days
--- NOTE | 2020-06-13 11:36 | Progress Note ---
Assessment and Plan - Patient Problems (1) Complication of AV dialysis fistula Current Visit: No Status: Acute Qualifiers: Encounter type: initial encounter Qualified Code(s): T82.9XXA - Unspecified complication of cardiac and vascular prosthetic device, implant and graft, initial encounter Plan to address problem: Status post thrombectomy postoperative day #2. Further recommendations per vascular surgery. (2) End stage renal disease Current Visit: No Status: Chronic Plan to address problem: Orders placed for Tuesday hemodialysis schedule. From nephrology standpoint, if he remains stable post dialysis, then he can be discharged, and we will follow up with him at the outpatient dialysis unit. (3) Hypertensive chronic kidney disease with stage 1 through stage 4 chronic kidney disease, or unspecified chronic kidney disease Current Visit: No Status: Chronic Plan to address problem: Monitor blood pressures on the current regimen. (4) Type 2 diabetes mellitus with diabetic chronic kidney disease Current Visit: No Status: Chronic Plan to address problem: Diabetes management per primary attending. Subjective Date of service: 06/13/20 Interval history: No acute complaints this am. Plan for HD. Was able to cannulate AVF yesterday post thrombectomy. Plan for HD today. Objective - Vital Signs Vital signs: Vital Signs - 12hr 06/13/20 06/13/20 06/13/20 00:54 04:00 05:04 Temperature 98.0 F 100.3 F H Pulse Rate 116 H 98 H 98 H Respiratory 16 18 Rate Blood Pressure 152/84 Blood Pressure 146/67 [Left] O2 Sat by Pulse 98 Oximetry 06/13/20 06/13/20 07:27 10:00 Temperature 98.6 F Pulse Rate 87 Respiratory 20 20 Rate Blood Pressure 153/84 Blood Pressure [Left] O2 Sat by Pulse 99 Oximetry - General Appearance General appearance: well-developed, well-nourished, appears stated age EENT: ATNC, PERRL Neck: no JVD, no thyromegaly Respiratory: Present: Clear to Ascultation, Normal Exam Cardiology: regular Gastrointestinal: normal Integumentary: no rash, warm and dry Neurologic: no focal deficit Musculoskeletal: deferred Psychiatric: cooperative - Lab 06/12/20 04:34 06/12/20 04:34 Most recent lab results Calcium 9.5 mg/dL (8.4-10.2) 06/12/20 04:34 - Allied health notes Allied health notes reviewed: nursing Medications & Allergies - Medications Allergies/Adverse Reactions: Allergies No Known Allergies Allergy (Verified 12/27/19 16:15) Home Medications: Home Medications Medication Instructions Recorded Confirmed Last Taken Type No Known Home Medications [No 06/11/20 06/11/20 Unknown History Reported Home Medications] Active Medications: Generic Name Dose Route Start Last Admin Trade Name Freq PRN Reason Stop Dose Admin Acetaminophen 650 mg 06/11/20 15:46 Tylenol PO Q4H PRN Pain MILD(1-3)/Fever >100.5/PRUITT Ondansetron HCl 4 mg 06/11/20 15:46 Zofran IV Q8H PRN Nausea And Vomiting Sodium Chloride 10 ml 06/11/20 22:00 06/13/20 10:15 Sodium Chloride Flush Syringe 10 Ml IV Not Given BID ERROL Sodium Chloride 10 ml 06/11/20 15:46 Sodium Chloride Flush Syringe 10 Ml IV PRN PRN LINE FLUSH
[2020-06-13 15:51] VITALS: BP 132/74
== END 2020-06-13 17:28 | disposition home or self-care (01) | DRG 252 ==
LOC: ED 14:15 → 4A 15:46 → OBSVTOIN 15:46 → 4A 18:46
PROVIDERS: ADMIT Internal Medicine; ATTEND Hospitalist
PROC: 03C83ZZ Extirpation of Matter from Left Brachial Artery, Percutaneous Approach (ICD-10-PCS; principal; 2020-06-11)
PROC: 03WY3JZ Revision of Synthetic Substitute in Upper Artery, Percutaneous Approach (ICD-10-PCS; 2020-06-11)
PROC: 3E03317 Introduction of Other Thrombolytic into Peripheral Vein, Percutaneous Approach (ICD-10-PCS; 2020-06-11)
PROC: B31J1ZZ Fluoroscopy of Left Upper Extremity Arteries using Low Osmolar Contrast (ICD-10-PCS; 2020-06-11)
PROC: 5A1D70Z Performance of Urinary Filtration, Intermittent, Less than 6 Hours Per Day (ICD-10-PCS; 2020-06-12)
PROC: 5A1D70Z Performance of Urinary Filtration, Intermittent, Less than 6 Hours Per Day (ICD-10-PCS; 2020-06-13)
DX: T82.868A Thrombosis due to vascular prosthetic devices, implants and grafts, initial encounter (principal); N18.6 End stage renal disease; I12.0 Hypertensive chronic kidney disease with stage 5 chronic kidney disease or end stage renal disease; E11.22 Type 2 diabetes mellitus with diabetic chronic kidney disease; Y83.8 Other surgical procedures as the cause of abnormal reaction of the patient, or of later complication, without mention of misadventure at the time of the procedure; G43.909 Migraine, unspecified, not intractable, without status migrainosus; Y92.89 Other specified places as the place of occurrence of the external cause; Z99.2 Dependence on renal dialysis; Z83.3 Family history of diabetes mellitus; Z82.49 Family history of ischemic heart disease and other diseases of the circulatory system
CPT/HCPCS: 36415; 36905; 80048; 80074; 82962; 85007; 85025; 85610; 85730; 93005; 96372; G0378; C1725; C1757; C1769; C1894; J0360; J1644; J2250; J2405; J2997; J3010; J7050; Q9967